=== PATIENT | female | born 1955 | race Caucasian/White ===

== ENCOUNTER → 2017-03-31 | Outpatient (CLI) | payer MEDICARE, OTHER ==
[~2017-03-31] MED LIST: AMLODIPINE BESYL5 MG PO; ASMANEX0.24 G1 IH; ASPIR 8181 MG PO; ASPIRIN EC81 M1 PO; ATORVASTATIN CA40 MG PO; AZITHROMYCIN 2250 MG PO; BACTRIM DS TAB1 EACH PO; BENZONATATE200 MG PO; BRILINTA90 MG PO; BUPROPION XL150 MG PO; CEFDINIR300 MG PO; CEFTIN500 MG PO; CELEXA40 MG PO; CO Q-10100 MG PO; COLACE100 MG PO; CYMBALTA60 MG PO; EFFIENT10 MG PO; ESTRACE2 MG PO; FLEXERIL PO; FLOVENT HFA 4444 MCG INH; GLYBURIDE 2.52.5 MG PO; HYTRIN 1 MG CAP1 MG PO; HYTRIN 5 M5 MG/1 CAP PO; HYZAAR 100-12.1 EACH PO; IRON325 PO; KOMBIGLYZE XR1 EACH; LEVEMIR SUBQ; LOSARTAN POTAS100 MG PO; LOSARTAN-HCTZ1 EAC3 PO; METFORMIN; METFORMIN HCL500 MG PO; MIRALAX17 GM PO; MOBIC15 MG PO; NATEGLINIDE; NEURONTIN 300300 M1 PO; NEURONTIN300 MG PO; NEURONTIN600 MG PO; NITROGLYCERIN0.4 MG SUBLING; NORVASC5 MG PO; NOVOLIN 70100 UNIT/1 SUBQ; NOVOLOG100 UNIT/1 SUBQ; OXYBUTYNIN 5 MG5 M1 PO; PROTONIX 20 MG20 M1 PO; PROTONIX40 M1 PO; PROTONIX40 M2 PO; Prandin PO; QUINU10 PD; RANEXA500 MG PO; Starlix PO; TOPROL XL25 MG PO; TRAMADOL 50 MG50 MG PO; TRAZODONE HCL50 MG PO; TRESIBA FL100 UNIT/1 SUBQ; TYLENOL325 MG PO; VALACYCLOVIR1000 MG PO; VALIUM5 MG PO; VENTOLIN HFA 1818 GM INH; VESICARE10 M1 PO; VICTOZA0.6 MG/0.1; VITAMIN B-12500 MCG PO; VITAMIN D2000 UNIT PO; WELLBUTRIN SR200 MG PO; XANAX 0.25 MG0.25 MG PO; ZITHROMAX250 MG PO; ZOCOR 20 MG TAB20 M1 PO; ZOCOR20 MG PO
== END ==
LOC: M.RAD 13:01
DX: J90 Pleural effusion, not elsewhere classified (principal); J40 Bronchitis, not specified as acute or chronic; J98.4 Other disorders of lung; Z98.890 Other specified postprocedural states

== ENCOUNTER → 2017-11-09 | Outpatient (CLI) | payer MEDICARE, OTHER | LOC: M.RAD 11:38 | DX: I70.0 Atherosclerosis of aorta (principal); M12.88 Other specific arthropathies, not elsewhere classified, other specified site; I70.8 Atherosclerosis of other arteries; R07.89 Other chest pain; I10 Essential (primary) hypertension; E11.9 Type 2 diabetes mellitus without complications; J45.909 Unspecified asthma, uncomplicated; E78.00 Pure hypercholesterolemia, unspecified; G47.33 Obstructive sleep apnea (adult) (pediatric) ==

== ENCOUNTER → 2017-12-15 | Outpatient (CLI) | payer MEDICARE, OTHER | LOC: M.ULTRA 07:31 | DX: Z12.31 Encounter for screening mammogram for malignant neoplasm of breast (principal); I73.9 Peripheral vascular disease, unspecified; I35.0 Nonrheumatic aortic (valve) stenosis; I10 Essential (primary) hypertension; E11.9 Type 2 diabetes mellitus without complications; M19.90 Unspecified osteoarthritis, unspecified site; K21.9 Gastro-esophageal reflux disease without esophagitis; F32.9 Major depressive disorder, single episode, unspecified; J45.909 Unspecified asthma, uncomplicated; E78.00 Pure hypercholesterolemia, unspecified; G47.33 Obstructive sleep apnea (adult) (pediatric) ==

== ENCOUNTER 2017-12-27 22:05 | Inpatient (IN) | payer MEDICARE, OTHER ==
[~2017-12-27] VITALS: Ht 162.6 cm; Wt 110.7 kg
[~2017-12-27 22:05] MED LIST changes: -AZITHROMYCIN 2250 MG PO; -CEFDINIR300 MG PO; -CO Q-10100 MG PO; -NEURONTIN600 MG PO; -RANEXA500 MG PO; -TRAZODONE HCL50 MG PO; -TRESIBA FL100 UNIT/1 SUBQ; -VALIUM5 MG PO
[2017-12-27 22:11] VITALS: BP 154/60
[2017-12-27 22:33] LABS: HEMATOCRIT 38.8 % (37.0-47.0); HEMOGLOBIN 12.6 gm/dL (12.0-15.0); MCH 31.2 pg (26.0-34.0); MCHC 32.4 g/dL (28.0-37.0); MCV 96.2 fL (80.0-100.0); NUCLEATED RBCS 0 /100WBC; PLATELET COUNT* 263 thou/uL (150-400); RBC 4.04 mil/uL (4.20-5.00); RDW-CV 13.1 % (10.5-14.5); WBC 17.9 thou/uL (4.0-11.0)
[2017-12-27] MEDS ORDERED: TRESIBA FL100 UNIT/1 SUBQ (22:38)
[2017-12-27 22:41] LABS: CALCIUM 9.9 mg/dL (8.5-10.1); CREATININE 2.2 mg/dL (0.6-1.3); POTASSIUM 3.9 mmol/L (3.5-5.1)
[2017-12-27 22:42] LABS: ALBUMIN 3.3 g/dL (3.4-5.0); TOTAL BILIRUBIN 0.4 mg/dL (<0.1-1.0); TOTAL PROTEIN 7.4 g/dL (6.4-8.2)
[2017-12-27 22:43] LABS: BE -7.1 mmol/L (-2 to +3); HCO3 16.5 mmol/L (22.0-26.0); PCO2 28.2 mmHg (35.0-45.0); PO2 71.6 mmHg (75.0-100.0); pH 7.384 (7.340-7.450)
[2017-12-28 00:15] LABS: ABSOLUTE LYMPHOCYTES 0.9 thou/uL (0.8-5.3); ABSOLUTE MONOCYTES 0.4 thou/uL (0.0-1.2); ABSOLUTE NEUTROPHILS 16.6 thou/uL (1.6-8.1); PLATELET ESTIMATE ADEQUATE
[2017-12-28 01:01] LABS: URINE BILIRUBIN NEGATIVE (Negative); URINE BLOOD NEGATIVE (Negative); URINE CLARITY CLEAR; URINE COLOR YELLOW; URINE GLUCOSE-RANDOM 3+ (Negative); URINE KETONES 1+ (Negative); URINE LEUKOCYTES-REFLEX NEGATIVE (Negative); URINE NITRITE-REFLEX NEGATIVE (Negative); URINE PROTEIN NEGATIVE (Negative); URINE SPECIFIC GRAVITY <= 1.005 (1.005-1.030); URINE UROBILINOGEN 0.2 E.U./dl (0.2-1.0)
[2017-12-28 01:45] VITALS: BP 137/81
[2017-12-28 02:00] VITALS: BP 139/79
[2017-12-28] MEDS ORDERED: ASPIR 8181 MG PO (02:08)
[2017-12-28] MEDS ORDERED: CO Q-10100 MG PO (02:09)
[2017-12-28] MEDS ORDERED: VALIUM5 MG PO (02:10)
[2017-12-28] MEDS ORDERED: NEURONTIN600 MG PO (02:11)
[2017-12-28] MEDS ORDERED: RANEXA500 MG PO (03:06)
[2017-12-28] MEDS ORDERED: TRAZODONE HCL50 MG PO (03:07)
[2017-12-28] MEDS ORDERED: VALACYCLOVIR1000 MG PO (03:08)
[2017-12-28] MEDS ORDERED: VITAMIN B-12500 MCG PO (03:10)
[2017-12-28 03:31] LABS: ABSOLUTE LYMPHOCYTES 1.6 thou/uL (0.8-5.3); ANION GAP 17 mmol/L (7-16); BASOPHILS 0.1 %; BUN 35 mg/dL (7-18); CALCIUM 9.2 mg/dL (8.5-10.1); CHLORIDE 96 mmol/L (98-107); CO2 19 mmol/L (21-32); CREATININE 2.1 mg/dL (0.6-1.3); HEMATOCRIT 38.8 % (37.0-47.0); HEMOGLOBIN 12.5 gm/dL (12.0-15.0); LYMPHOCYTES 8.5 %; MCH 30.6 pg (26.0-34.0); MCHC 32.3 g/dL (28.0-37.0); MONOCYTES 5.6 %; MPV 10.2 fl. (7.2-11.1); NUCLEATED RBCS 0 /100WBC; PLATELET COUNT* 258 thou/uL (150-400); POLYS 85.8 %; POTASSIUM 3.3 mmol/L (3.5-5.1); RBC 4.08 mil/uL (4.20-5.00); RDW-CV 12.7 % (10.5-14.5); SODIUM 132 mmol/L (136-145); WBC 18.6 thou/uL (4.0-11.0)
[2017-12-28 03:33] LABS: GLUCOSE 511 mg/dL (70-99)
[2017-12-28 03:35] LABS: ALBUMIN 3.3 g/dL (3.4-5.0); ALKALINE PHOSPHATASE 132 U/L (46-116); MAGNESIUM 1.7 mg/dL (1.8-2.4); SGOT 12 U/L (15-37); SGPT 22 U/L (30-65); TOTAL BILIRUBIN 0.3 mg/dL (<0.1-1.0); TOTAL PROTEIN 6.9 g/dL (6.4-8.2); TROPONIN-I LEVEL <0.06 ng/mL (<0.06)
[2017-12-28 07:30] VITALS: BP 125/72
[2017-12-28 07:39] LABS: CALCIUM 9.6 mg/dL (8.5-10.1); CREATININE 1.6 mg/dL (0.6-1.3); MAGNESIUM 1.8 mg/dL (1.8-2.4)
[2017-12-28 12:00] VITALS: BP 118/79
[2017-12-28 12:01] LABS: CALCIUM 8.5 mg/dL (8.5-10.1); CREATININE 1.3 mg/dL (0.6-1.3); MAGNESIUM 1.7 mg/dL (1.8-2.4); POTASSIUM 3.6 mmol/L (3.5-5.1)
[2017-12-28 12:41] LABS: URINE BILIRUBIN NEGATIVE (Negative); URINE BLOOD NEGATIVE (Negative); URINE CLARITY CLEAR; URINE COLOR YELLOW; URINE GLUCOSE-RANDOM NEGATIVE (Negative); URINE KETONES NEGATIVE (Negative); URINE LEUKOCYTES-REFLEX NEGATIVE (Negative); URINE NITRITE-REFLEX NEGATIVE (Negative); URINE PROTEIN NEGATIVE (Negative); URINE SPECIFIC GRAVITY <= 1.005 (1.005-1.030); URINE UROBILINOGEN 0.2 E.U./dl (0.2-1.0)
[2017-12-28 15:37] LABS: CALCIUM 8.7 mg/dL (8.5-10.1); CREATININE 1.2 mg/dL (0.6-1.3); MAGNESIUM 1.7 mg/dL (1.8-2.4); POTASSIUM 3.7 mmol/L (3.5-5.1)
[2017-12-28 16:00] VITALS: BP 133/77
--- NOTE | 2017-12-28 17:26 | EKG ---
[place] [address] ELECTROCARDIOGRAM REPORT Name: GWENDOLYN PAULINO Room: [address] ADM IN M.R.#: [id number] Admission: 12/28/17 Attend Phys: Eriberto Armijo MD Discharge: Date of : 55 Report #: [id number] THIS REPORT FOR: //name// [facility] ED Test Date: 2017-12-28 Test Time: 01:05:57 Pat Name: GWENDOLYN PAULINO Department: Room: [address] Gender: F Pathology Manager: : 1955 Requested By: Gaby Singh Order Number: [id number] Reading MD: Parviz Gamble Measurements Intervals [place] Rate: 96 P: 55 MS: 155 QRS: 42 QRSD: 95 T: -75 QT: 387 QTc: 490 Interpretive Statements Sinus rhythm Probable left atrial enlargement Borderline T abnormalities, inferior leads Borderline prolonged QT interval Compared to ECG 02/16/2017 13:15:03 No significant changes Electronically Signed On 12-28-2017 17:25:56 CDT by Parviz Gamble [email or web address] <ELECTRONICALLY SIGNED> By: Parviz Gamble MD, [facility] 12/28/17 1725 0105 Parviz Gamble MD, [facility] /EPI
--- NOTE | 2017-12-28 17:28 | EKG ---
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: : 1955 Requested By: Gaby Singh Order Number: [id number] Reading MD: Parviz Gamble Measurements Intervals [place] Rate: 86 P: 44 [place]: 143 QRS: 19 QRSD: 93 T: -48 QT: 395 QTc: 473 Interpretive Statements Sinus rhythm Probable left atrial enlargement Nonspecific T abnormalities, diffuse leads Compared to ECG 02/16/2017 13:15:03 Prolonged QT interval no longer present T-wave abnormality still present Electronically Signed On 12-28-2017 17:27:45 CDT by Parviz Gamble [email or web address] <ELECTRONICALLY SIGNED> By: Parviz Gamble MD, FAC 12/28/17 1727 0828 0828 Parviz Gamble MD, [facility] /EPI
[2017-12-28 19:49] LABS: CALCIUM 8.6 mg/dL (8.5-10.1); CREATININE 1.1 mg/dL (0.6-1.3); MAGNESIUM 1.6 mg/dL (1.8-2.4); POTASSIUM 3.4 mmol/L (3.5-5.1)
[2017-12-28 20:00] VITALS: BP 166/93
[2017-12-29] VITALS: BP 138/79
[2017-12-29 04:28] VITALS: BP 164/84
[2017-12-29 07:36] LABS: ABSOLUTE BASOPHILS 0.1 thou/uL (0.0-0.2); ABSOLUTE EOSINOPHILS 0.2 thou/uL (0.0-0.7); ABSOLUTE LYMPHOCYTES 1.9 thou/uL (0.8-5.3); ABSOLUTE MONOCYTES 1.2 thou/uL (0.0-1.2); ABSOLUTE NEUTROPHILS 11.8 thou/uL (1.6-8.1); BASOPHILS 0.8 %; EOSINOPHILS 1.1 %; HEMATOCRIT 37.7 % (37.0-47.0); HEMOGLOBIN 12.7 gm/dL (12.0-15.0); LYMPHOCYTES 12.5 %; MCH 31.1 pg (26.0-34.0); MCHC 33.6 g/dL (28.0-37.0); MCV 92.8 fL (80.0-100.0); MPV 9.3 fl. (7.2-11.1); NUCLEATED RBCS 0 /100WBC; PLATELET COUNT* 262 thou/uL (150-400); POLYS 77.6 %; RBC 4.07 mil/uL (4.20-5.00); RDW-CV 12.7 % (10.5-14.5); WBC 15.2 thou/uL (4.0-11.0)
[2017-12-29 07:51] LABS: ALBUMIN 2.8 g/dL (3.4-5.0); CALCIUM 8.9 mg/dL (8.5-10.1); CREATININE 1.1 mg/dL (0.6-1.3); MAGNESIUM 2.1 mg/dL (1.8-2.4); PHOSPHORUS* 2.1 mg/dL (2.5-4.9); TOTAL BILIRUBIN 0.6 mg/dL (<0.1-1.0); TOTAL PROTEIN 6.7 g/dL (6.4-8.2)
[2017-12-29 07:53] LABS: POTASSIUM 4.4 mmol/L (3.5-5.1)
[2017-12-29 08:00] VITALS: BP 140/80
[2017-12-29 12:13] VITALS: BP 121/71
[2017-12-29 13:03] LABS: URINE BILIRUBIN NEGATIVE (Negative); URINE BLOOD NEGATIVE (Negative); URINE CLARITY CLEAR; URINE COLOR YELLOW; URINE GLUCOSE-RANDOM NEGATIVE (Negative); URINE KETONES NEGATIVE (Negative); URINE LEUKOCYTES-REFLEX NEGATIVE (Negative); URINE NITRITE-REFLEX NEGATIVE (Negative); URINE PROTEIN NEGATIVE (Negative); URINE SPECIFIC GRAVITY <= 1.005 (1.005-1.030); URINE UROBILINOGEN 0.2 E.U./dl (0.2-1.0)
[2017-12-29 16:00] VITALS: BP 127/64
[2017-12-29 20:00] VITALS: BP 134/68
[2017-12-30] VITALS: BP 137/64
[2017-12-30 04:00] VITALS: BP 153/71
[2017-12-30 04:57] LABS: HEMATOCRIT 37.5 % (37.0-47.0); HEMOGLOBIN 12.6 gm/dL (12.0-15.0); MCH 31.2 pg (26.0-34.0); MCHC 33.5 g/dL (28.0-37.0); MCV 93.1 fL (80.0-100.0); MPV 9.6 fl. (7.2-11.1); RBC 4.02 mil/uL (4.20-5.00); RDW-CV 12.9 % (10.5-14.5); WBC 11.4 thou/uL (4.0-11.0)
[2017-12-30 06:08] LABS: ALBUMIN 2.7 g/dL (3.4-5.0); CALCIUM 9.3 mg/dL (8.5-10.1); CREATININE 1.3 mg/dL (0.6-1.3); POTASSIUM 3.7 mmol/L (3.5-5.1); TOTAL BILIRUBIN 0.5 mg/dL (<0.1-1.0); TOTAL PROTEIN 6.7 g/dL (6.4-8.2)
[2017-12-30 07:57] VITALS: BP 153/88
[2017-12-30 12:03] VITALS: BP 154/77
[2017-12-30] MEDS ORDERED: AZITHROMYCIN 2250 MG PO (13:28)
[2017-12-30] MEDS ORDERED: CEFDINIR300 MG PO (13:28)
[2017-12-30 13:45] VITALS: BP 154/77
--- NOTE | 2018-01-01 08:35 | CON ---
[address] [address] CONSULTATION Name: GWENDOLYN PAULINO Room: [address] IN .R.#: [id number] Admission: 12/28/17 Attend Phys: Eriberto Armijo MD Discharge: 12/30/17 Date of : 55 Report #: [id number] THIS REPORT FOR: //name// CC: Eriberto Ornelastings DATE OF SERVICE: 12/28/2017 NEPHROLOGY CONSULTATION CONSULTING PHYSICIAN: Dr. Luna. REASON FOR NEPHROLOGY CONSULTATION: Acute kidney injury. CHIEF COMPLAINT: The patient was having high blood glucose. HISTORY OF PRESENT ILLNESS: This is a 62-year-old female, who will be having chronic kidney disease, stage 2-3 with baseline creatinine of 1-1.4, has a history of diabetes and hypertension, who had to take steroids for the past couple of days because of increasing upper respiratory symptoms with congestion-like symptoms, and she noticed that her blood glucose was running high. She had a blood glucose in 800s when she came into the ER yesterday, and she was started on insulin drip and IV fluids for DKA protocol, but she actually was not in DKA. Her creatinine was 2.2 when she came in and did slowly come down to 1.6 with IV fluids. She does not take any NSAIDs at home and reports no history of urinary problems, and does not have any history of kidney stones. She does take losartan at home. Currently, she is still having some wheezing and difficulty breathing. She also has a history of asthma. She also has some cough, not really producing much sputum. ALLERGIES: LISINOPRIL, HYDROCODONE, MELOXICAM AND BAND-AIDS. REVIEW OF SYSTEMS: Which is as mentioned in history of present illness, but otherwise negative. PAST MEDICAL AND SURGICAL HISTORY: Which includes partial hysterectomy, bilateral foot surgery, hypertension, insulin-dependent diabetes mellitus, dislocated disk and back surgery for that, arthritis, asthma, epilepsy, last seizure 4-5 years ago, sleep apnea, fatty liver, dyslipidemia, left lung cancer, removed half of the lung and received chemoradiation for that in 2013, GERD, oral surgery, multiple teeth extractions, upper denture, depression, cardiac stent placed in October. HOME MEDICATIONS: Which include losartan, Brilinta, albuterol, amlodipine, cholecalciferol, cyanocobalamin, gabapentin, terazosin, nitroglycerin, fluticasone, glyburide, pantoprazole, aspirin, ubidecarenone, lorazepam, [place] [address] CONSULTATION Name: GWENDOLYN PAULINO Erasmo Room: [address]#: [id number] Admission: 12/28/17 Attend Phys: Eriberto Armijo MD Discharge: 12/30/17 Date of : 55 Report #: [id number] gabapentin, acyclovir, cyanocobalamin, Tresiba and duloxetine. FAMILY HISTORY: No history of any kidney disease in the family that the patient knows. SOCIAL HISTORY: She does not smoke or use alcohol, does not use recreational drugs. Lives at home with her . PHYSICAL EXAMINATION: VITAL SIGNS: Blood pressure is 139/79, temperature 36.6, respiratory rate is 18, pulse rate is 95, pulse ox is 95% on room air. GENERAL: She is awake, alert, oriented. She is very pleasant. HEAD, EYES, EARS, NOSE, THROAT: Mucous members are moist. NECK: There is no JVD. CHEST: Bilateral diminished breath sounds and there is some wheezing present bilaterally. CARDIOVASCULAR: S1, S2 normal. No murmurs present. ABDOMEN: Soft, nondistended, obese, nontender. EXTREMITIES: Lower extremities, there is no lower extremity edema. Symmetrical lower extremities. NEUROLOGIC FUNCTION: Gross neurologic function is intact. PSYCHIATRIC: Mood and affect seems to be normal. LABORATORY DATA: WBC is 18.2, hemoglobin is 12.5, platelet count is 258. Sodium is 135, potassium is 3.0, chloride was 101, BUN was 32, creatinine was 1.6, was 2.2 when she came in. Other labs are reviewed. UA had no protein or blood on dipstick. IMAGING: Chest x-ray was reviewed. ASSESSMENT: 1. Acute kidney injury on likely chronic kidney disease stage 3, likely the patient has diabetic and hypertensive nephropathy and acute kidney injury was because of dehydration and also because of ARB use in this situation. Creatinine is currently getting better, was 2.2 when she came in and it is down to 1.6. Baseline creatinine is 1-1.4. No need for renal ultrasound as of yet. Urine is pretty bland with no protein or blood in it. 2. Hypokalemia. This is because of polyuria because of increased blood glucose and potassium is being replaced as per protocol by primary team. 3. Hyperglycemia, likely steroid induced. Primary team is following that. I think she qualifies for sepsis at this moment and she needs sepsis fluid bolus protocol. 4. Hypertension. Her blood pressure is currently controlled. Suggest avoid ARB for now until her creatinine recovers. 5. Upper respiratory infection, exacerbation of asthma, primary [place] [address] CONSULTATION Name: GWENDOLYN PAULINO Room: [address]#: [id number] Admission: 12/28/17 Attend Phys: Eriberto Armijo MD Discharge: 12/30/17 Date of : 55 Report #: [id number] 6. Diabetes, type 2. PLAN: 1. I would cut down her D5 normal saline to 100 mL an hour. 2. The potassium is being replaced as per protocol. 3. Creatinine continues to get better. Thank you for this consultation. I discussed the plan with the patient as well as the patient's and the patient's nurse. I's and O's also need to be maintained. I will continue to follow with you. <ELECTRONICALLY SIGNED> By: Ana Lilia Roman MD 01/01/18 0835 0842 2024Akadeem Roman MD /nt
== END 2017-12-30 14:26 | disposition home or self-care (01) | DRG 871 ==
LOC: M.ERS 22:05 → M.2W 12-28 00:13 → M.TBA-ER 12-28 00:13 → M.2W 12-28 00:54
PROVIDERS: Internal Medicine; Personal Emergency Response Attendant; ADMIT Internal Medicine
DX: A41.9 Sepsis, unspecified organism (principal); E11.10 Type 2 diabetes mellitus with ketoacidosis without coma; N17.9 Acute kidney failure, unspecified; J45.901 Unspecified asthma with (acute) exacerbation; M19.90 Unspecified osteoarthritis, unspecified site; J45.909 Unspecified asthma, uncomplicated; E78.00 Pure hypercholesterolemia, unspecified; K21.9 Gastro-esophageal reflux disease without esophagitis; F32.9 Major depressive disorder, single episode, unspecified; J06.9 Acute upper respiratory infection, unspecified; G40.909 Epilepsy, unspecified, not intractable, without status epilepticus; E78.5 Hyperlipidemia, unspecified; K08.409 Partial loss of teeth, unspecified cause, unspecified class; I12.9 Hypertensive chronic kidney disease with stage 1 through stage 4 chronic kidney disease, or unspecified chronic kidney disease; N18.3 Chronic kidney disease, stage 3 (moderate); E87.6 Hypokalemia; Z79.4 Long term (current) use of insulin; Z90.711 Acquired absence of uterus with remaining cervical stump; Z85.118 Personal history of other malignant neoplasm of bronchus and lung; Z88.8 Allergy status to other drugs, medicaments and biological substances; Z95.5 Presence of coronary angioplasty implant and graft; Z92.21 Personal history of antineoplastic chemotherapy; Z92.3 Personal history of irradiation; Z88.6 Allergy status to analgesic agent; Z82.49 Family history of ischemic heart disease and other diseases of the circulatory system; Z87.891 Personal history of nicotine dependence; Z79.899 Other long term (current) drug therapy; T38.0X5A Adverse effect of glucocorticoids and synthetic analogues, initial encounter

== ENCOUNTER 2018-04-09 17:33 | Inpatient (IN) | payer MEDICARE, OTHER ==
[~2018-04-09] VITALS: Ht 162.6 cm; Wt 109.8 kg
[~2018-04-09 17:33] MED LIST changes: +AZITHROMYCIN 2250 MG PO; +CEFDINIR300 MG PO; +CO Q-10100 MG PO; +NEURONTIN600 MG PO; +RANEXA500 MG PO; +TRAZODONE HCL50 MG PO; +TRESIBA FL100 UNIT/1 SUBQ; +VALIUM5 MG PO
[2018-04-09 17:39] VITALS: BP 186/77
[2018-04-09] MEDS ORDERED: NORCO 7.5-3251 EACH PO (17:47)
[2018-04-09 18:04] LABS: URINE BILIRUBIN NEGATIVE (Negative); URINE BLOOD NEGATIVE (Negative); URINE CLARITY CLEAR; URINE COLOR STRAW; URINE GLUCOSE-RANDOM 2+ (Negative); URINE KETONES NEGATIVE (Negative); URINE LEUKOCYTES-REFLEX NEGATIVE (Negative); URINE NITRITE-REFLEX NEGATIVE (Negative); URINE PROTEIN NEGATIVE (Negative); URINE SPECIFIC GRAVITY <= 1.005 (1.005-1.030); URINE UROBILINOGEN 0.2 E.U./dl (0.2-1.0)
[2018-04-09 18:05] LABS: ABSOLUTE EOSINOPHILS 0.1 thou/uL (0.0-0.7); ABSOLUTE LYMPHOCYTES 2.4 thou/uL (0.8-5.3); ABSOLUTE MONOCYTES 0.8 thou/uL (0.0-1.2); ABSOLUTE NEUTROPHILS 7.9 thou/uL (1.6-8.1); BASOPHILS 0.2 %; EOSINOPHILS 1.1 %; LYMPHOCYTES 21.1 %; MCH 30.7 pg (26.0-34.0); MCHC 32.6 g/dL (28.0-37.0); MCV 94.2 fL (80.0-100.0); MONOCYTES 6.7 %; MPV 9.7 fl. (7.2-11.1); NUCLEATED RBCS 0 /100WBC; PLATELET COUNT* 270 thou/uL (150-400); POLYS 70.9 %; RBC 4.88 mil/uL (4.20-5.00); RDW-CV 13.6 % (10.5-14.5); WBC 11.2 thou/uL (4.0-11.0)
[2018-04-09 18:07] LABS: CALCIUM 9.8 mg/dL (8.5-10.1); CREATININE 1.5 mg/dL (0.6-1.3); POTASSIUM 4.5 mmol/L (3.5-5.1)
[2018-04-09 18:11] LABS: ALBUMIN 3.6 g/dL (3.4-5.0); TOTAL BILIRUBIN 0.4 mg/dL (<0.1-1.0); TOTAL PROTEIN 7.6 g/dL (6.4-8.2)
[2018-04-09 18:12] LABS: BE -4.2 mmol/L (-2 to +3); HCO3 19.5 mmol/L (22.0-26.0); PCO2 32.3 mmHg (35.0-45.0); PO2 73.7 mmHg (75.0-100.0); pH 7.399 (7.340-7.450)
[2018-04-09 20:20] VITALS: BP 150/70
[2018-04-09 20:30] VITALS: BP 146/70
--- NOTE | 2018-04-10 06:12 | NUR ---
PATIENT ARRIVED ON FLOOR FROM ER ABOUT 2029. PATIENT ADMISSION HISTORY AND ASSESSMENT WAS COMPLETED CHARTED. BLOOD SUGAR WAS 252 RIGHT BEFORE SHE CAME UP FROM ER INSULIN WAS GIVEN PER SLIDING SCALE. PATIENT WAS GIVEN PAIN MEDICINE ONCE FOR CHRONIC PAIN. IV FLUIDS ARE INFUSING AT 100 ML/HR. WILL CONTINUE TO MONITOR.
[2018-04-10 08:00] VITALS: BP 152/75
--- NOTE | 2018-04-10 15:32 | EKG ---
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: [place] : 1955 Requested By: Gaby Singh Order Number: [id number] MD: Parviz Gamble Measurements Intervals [place] Rate: 91 P: 52 [place]: 140 QRS: -1 QRSD: 56 T: -13 QT: 483 QTc: 595 Interpretive Statements Sinus rhythm Probable left atrial enlargement Borderline repolarization abnormality Prolonged QT interval Compared to ECG 12/28/2017 08:28:46 Prolonged QT interval now present T-wave abnormality no longer present Electronically Signed On 04-10-2018 15:32:25 OPERATIONS LABEL CLERK by Parviz Gamble [email or web address] <ELECTRONICALLY SIGNED> By: Parviz Gamble MD, [facility] 04/10/18 1532 1830 1830 Parviz Gamble MD, [facility] /EPI
--- NOTE | 2018-04-10 15:44 | NUR ---
SW met with pt to complete initial assessment, introduce self, and SW role. Pt alert, oriented. Pt lives at home with family. Pt says her is very supportive and pt does not anticipate any dc needs. SW to continue to follow to assist with safe dc planning.
--- NOTE | 2018-04-10 16:39 | NUR ---
SHIFT NOTE - HOME MEDS ORDERED FOR THIS SHIFT. PT UP TO BR AD DANIKA. WILL CONTINUE TO MONITOR.
[2018-04-10 16:51] VITALS: BP 159/85
[2018-04-10 23:09] LABS: GLYCOHEMOGLOBIN (HGB A1C) 11.9 % (4.8-5.6)
[2018-04-11 00:24] VITALS: BP 151/74
[2018-04-11 03:54] LABS: ABSOLUTE BASOPHILS 0.1 thou/uL (0.0-0.2); ABSOLUTE EOSINOPHILS 0.1 thou/uL (0.0-0.7); ABSOLUTE LYMPHOCYTES 1.6 thou/uL (0.8-5.3); ABSOLUTE MONOCYTES 0.6 thou/uL (0.0-1.2); ABSOLUTE NEUTROPHILS 7.4 thou/uL (1.6-8.1); BASOPHILS 0.5 %; EOSINOPHILS 0.9 %; HEMATOCRIT 39.3 % (37.0-47.0); LYMPHOCYTES 16.6 %; MCH 30.5 pg (26.0-34.0); MCV 92.5 fL (80.0-100.0); MPV 9.3 fl. (7.2-11.1); NUCLEATED RBCS 0 /100WBC; PLATELET COUNT* 222 thou/uL (150-400); RBC 4.24 mil/uL (4.20-5.00); RDW-CV 13.7 % (10.5-14.5); WBC 9.7 thou/uL (4.0-11.0)
[2018-04-11 04:11] LABS: CALCIUM 8.8 mg/dL (8.5-10.1); CREATININE 1.4 mg/dL (0.6-1.3); POTASSIUM 4.3 mmol/L (3.5-5.1)
--- NOTE | 2018-04-11 06:21 | NUR ---
PATIENT SLEPT WELL DURING THIS SHIFT. PT UP TO BATHROOM WITH STEADY GAIT. PT WITH FLUIDS INFUSING IN LT AC PER DR ORDER. PT DENIES PAIN. PT WITH BLOOD SUGAR AT 2100 OF 165; INSULIN GIVEN CHARTED. FREQUENTLY USED ITEMS AND CALL LIGHT WITHINA REACH. SIDERAILS UPX2. WILL CONTINUE TO MONITOR.
[2018-04-11 07:30] VITALS: BP 156/82
[2018-04-11] MEDS ORDERED: HUMALOG100 UNIT/1 SUBQ (10:25)
[2018-04-11 10:26] VITALS: BP 156/82
--- NOTE | 2018-04-11 11:02 | NUR ---
PATIENT GIVEN INSULIN WITH BREAKFAST THIS AM, INSTRUCTED ON SLIDING SCALE INSULIN. IV DC'D. PATIENT VERBALIZES UNDERSTANDING OF PAPERWORK AND SCRIPT. PATIENT TAKEN OUT VIA WHEELCHAIR WITH ALL BELONGINGS WITH STAFF.
== END 2018-04-11 11:06 | disposition home or self-care (01) | DRG 682 ==
LOC: M.ERS 17:33 → M.TBA-ER 18:43 → M.3W 18:43 → M.TBA-ER 18:52 → M.3W 21:06
PROVIDERS: Internal Medicine; Personal Emergency Response Attendant; ADMIT Internal Medicine
DX: N17.9 Acute kidney failure, unspecified (principal); E11.00 Type 2 diabetes mellitus with hyperosmolarity without nonketotic hyperglycemic-hyperosmolar coma (NKHHC); R65.11 Systemic inflammatory response syndrome (SIRS) of non-infectious origin with acute organ dysfunction; E87.1 Hypo-osmolality and hyponatremia; E11.65 Type 2 diabetes mellitus with hyperglycemia; I10 Essential (primary) hypertension; M19.90 Unspecified osteoarthritis, unspecified site; E78.00 Pure hypercholesterolemia, unspecified; K21.9 Gastro-esophageal reflux disease without esophagitis; F32.9 Major depressive disorder, single episode, unspecified; J45.909 Unspecified asthma, uncomplicated; E86.0 Dehydration; Z88.8 Allergy status to other drugs, medicaments and biological substances; Z88.5 Allergy status to narcotic agent; Z90.710 Acquired absence of both cervix and uterus; Z95.5 Presence of coronary angioplasty implant and graft; Z79.899 Other long term (current) drug therapy; Z79.4 Long term (current) use of insulin; Z79.82 Long term (current) use of aspirin

== ENCOUNTER → 2018-11-09 | Outpatient (CLI) | payer MEDICARE, OTHER ==
[~2018-11-09] MED LIST changes: +HUMALOG100 UNIT/1 SUBQ; +NORCO 7.5-3251 EACH PO
== END ==
LOC: M.ULTRA 13:15
DX: E01.0 Iodine-deficiency related diffuse (endemic) goiter (principal); Z88.8 Allergy status to other drugs, medicaments and biological substances

== ENCOUNTER 2019-05-19 19:47 | Emergency (ER) | payer MEDICARE, OTHER ==
[~2019-05-19] VITALS: Ht 162.6 cm; Wt 108.9 kg
[2019-05-19 20:12] LABS: URINE BILIRUBIN NEGATIVE (Negative); URINE BLOOD NEGATIVE (Negative); URINE CLARITY CLEAR; URINE COLOR YELLOW; URINE GLUCOSE-RANDOM NEGATIVE (Negative); URINE KETONES NEGATIVE (Negative); URINE LEUKOCYTES-REFLEX NEGATIVE (Negative); URINE NITRITE-REFLEX NEGATIVE (Negative); URINE PROTEIN NEGATIVE (Negative); URINE SPECIFIC GRAVITY 1.025 (1.005-1.030); URINE UROBILINOGEN 0.2 E.U./dl (0.2-1.0)
[2019-05-19 20:31] LABS: ABSOLUTE BASOPHILS 0.1 thou/uL (0.0-0.2); ABSOLUTE EOSINOPHILS 0.1 thou/uL (0.0-0.7); ABSOLUTE LYMPHOCYTES 1.4 thou/uL (0.8-5.3); ABSOLUTE MONOCYTES 1.2 thou/uL (0.0-1.2); ABSOLUTE NEUTROPHILS 14.6 thou/uL (1.6-8.1); BASOPHILS 0.5 %; EOSINOPHILS 0.3 %; HEMATOCRIT 44.2 % (37.0-47.0); HEMOGLOBIN 15.1 gm/dL (12.0-15.0); LYMPHOCYTES 8.3 %; MCH 31.4 pg (26.0-34.0); MCHC 34.1 g/dL (28.0-37.0); MCV 92.1 fL (80.0-100.0); MONOCYTES 6.8 %; MPV 9.1 fl. (7.2-11.1); NUCLEATED RBCS 0 /100WBC; PLATELET COUNT* 227 thou/uL (150-400); POLYS 84.1 %; RDW-CV 13.8 % (10.5-14.5); WBC 17.3 thou/uL (4.0-11.0)
[2019-05-19 20:34] LABS: CALCIUM 9.6 mg/dL (8.5-10.1); CREATININE 1.2 mg/dL (0.6-1.3)
[2019-05-19 20:45] LABS: ALBUMIN 3.7 g/dL (3.4-5.0); TOTAL BILIRUBIN 0.4 mg/dL (<0.1-1.0); TOTAL PROTEIN 7.7 g/dL (6.4-8.2)
[2019-05-19 20:47] LABS: INFLUENZA A ANTIGEN Negative (Negative); INFLUENZA B ANTIGEN Negative (Negative)
[2019-05-19] MEDS ORDERED: PROAIR HFA8.5 GM INH (22:32)
[2019-05-19] MEDS ORDERED: ATIVAN0.5 M1 PO (22:32)
[2019-05-19] MEDS ORDERED: AMOXICILLIN875 MG PO (22:34)
[2019-05-19] MEDS ORDERED: TYLENOL WITH CO1 TA1 PO (22:34)
[2019-05-19 22:46] VITALS: BP 167/98
--- NOTE | 2019-05-20 12:21 | EKG ---
[place] [address] ELECTROCARDIOGRAM REPORT Name: GWENDOLYN PAULINO Room: [facility]#: [id number] Admission: 05/19/19 Attend Phys: Discharge: 05/19/19 Date of : 55 Date of Service: 05/19/192004 Report #: [id number] THIS REPORT FOR: //name// [facility] ED Test Date: 2019-05-19 Test Time: 20:05:36 Pat Name: GWENDOLYN PAULINO Department: Room: Gender: Project Coordinator: [place] : 1955 Requested By: Janina Tubbs Order Number: [id number] MD: Kenton Garcia Measurements Intervals [place] Rate: 103 P: 61 [place]: 135 QRS: 22 QRSD: 109 T: 29 QT: 357 QTc: 468 Interpretive Statements Sinus tachycardia Probable left atrial enlargement septal infarct, old Baseline wander in lead(s) V4 Compared to ECG 04/09/2018 18:30:34 Myocardial infarct finding now present Sinus rhythm no longer present Prolonged QT interval no longer present Electronically Signed On 05-20-2019 12:20:46 PLACEMENT SECRETARY by Kenton Garcia [email or web address] <ELECTRONICALLY SIGNED> By: Kenton Garcia MD, FACC 05/20/19 1220 04 04 Kenton Garcia MD, FAC /EPI
== END 2019-05-19 22:46 | disposition home or self-care (01) ==
LOC: M.ERS 19:47
PROVIDERS: Emergency Medicine
DX: J02.0 Streptococcal pharyngitis (principal); R19.7 Diarrhea, unspecified; I10 Essential (primary) hypertension; E78.00 Pure hypercholesterolemia, unspecified; E11.9 Type 2 diabetes mellitus without complications; J45.909 Unspecified asthma, uncomplicated; M19.90 Unspecified osteoarthritis, unspecified site; G47.30 Sleep apnea, unspecified; K21.9 Gastro-esophageal reflux disease without esophagitis; F32.9 Major depressive disorder, single episode, unspecified; Z90.711 Acquired absence of uterus with remaining cervical stump; Z95.2 Presence of prosthetic heart valve; Z79.4 Long term (current) use of insulin; Z88.5 Allergy status to narcotic agent; Z88.8 Allergy status to other drugs, medicaments and biological substances

== ENCOUNTER → 2020-01-24 | Outpatient (CLI) | payer MEDICARE, OTHER ==
[~2020-01-24] MED LIST changes: +AMOXICILLIN875 MG PO; +ATIVAN0.5 M1 PO; +PROAIR HFA8.5 GM INH; +TYLENOL WITH CO1 TA1 PO
== END ==
LOC: M.RAD 12:43
PROVIDERS: ATTEND Family Medicine
DX: Z12.31 Encounter for screening mammogram for malignant neoplasm of breast (principal)

== ENCOUNTER 2020-01-28 10:06 | Inpatient (IN) | payer MEDICARE, OTHER ==
[~2020-01-28] VITALS: Ht 162.6 cm; Wt 98.0 kg
[2020-01-28 10:22] VITALS: BP 131/68
[2020-01-28 10:33] LABS: URINE BILIRUBIN NEGATIVE (Negative); URINE BLOOD NEGATIVE (Negative); URINE CLARITY CLEAR; URINE COLOR YELLOW; URINE GLUCOSE-RANDOM NEGATIVE (Negative); URINE KETONES NEGATIVE (Negative); URINE LEUKOCYTES-REFLEX NEGATIVE (Negative); URINE NITRITE-REFLEX NEGATIVE (Negative); URINE PROTEIN TRACE (Negative); URINE UROBILINOGEN 0.2 E.U./dl (0.2-1.0)
[2020-01-28 10:50] LABS: INFLUENZA A ANTIGEN Negative (Negative); INFLUENZA B ANTIGEN Negative (Negative)
[2020-01-28 11:00] LABS: ABSOLUTE BASOPHILS 0.1 thou/uL (0.0-0.2); ABSOLUTE LYMPHOCYTES 1.3 thou/uL (0.8-5.3); ABSOLUTE NEUTROPHILS 4.3 thou/uL (1.6-8.1); BASOPHILS 0.9 %; EOSINOPHILS 0.1 %; HEMATOCRIT 41.4 % (37.0-47.0); LYMPHOCYTES 19.1 %; MCH 30.8 pg (26.0-34.0); MCHC 33.9 g/dL (28.0-37.0); MCV 90.9 fL (80.0-100.0); MONOCYTES 14.7 %; NUCLEATED RBCS 0 /100WBC; PLATELET COUNT* 164 thou/uL (150-400); POLYS 65.2 %; RBC 4.55 mil/uL (4.20-5.00); RDW-CV 13.4 % (10.5-14.5); WBC 6.6 thou/uL (4.0-11.0)
[2020-01-28 11:04] LABS: CALCIUM 8.2 mg/dL (8.5-10.1); CREATININE 1.5 mg/dL (0.6-1.3); POTASSIUM 3.4 mmol/L (3.5-5.1)
[2020-01-28 11:05] LABS: APTT 27.6 Seconds (25.0-31.3)
[2020-01-28 11:15] LABS: ALBUMIN 3.2 g/dL (3.4-5.0); TOTAL BILIRUBIN 0.4 mg/dL (<0.1-1.0); TOTAL PROTEIN 7.6 g/dL (6.4-8.2)
--- NOTE | 2020-01-28 13:31 | NUR ---
PT NOW IN INPATIENT HOSPITAL BED, STATES RELIEF FROM BACK PAIN.
[2020-01-28 14:12] VITALS: BP 150/87
[2020-01-28 15:30] VITALS: BP 143/62
--- NOTE | 2020-01-28 15:33 | EKG ---
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: [place] : 1955 Requested By: Monique Powell Order Number: [id number] MD: Kenton Garcia Measurements Intervals [place] Rate: 93 P: 50 AK: 149 QRS: 14 QRSD: 103 T: -62 QT: 378 QTc: 471 Interpretive Statements Sinus rhythm Probable left atrial enlargement Borderline T abnormalities, inferior leads Compared to ECG 05/19/2019 20:05:36 Sinus tachycardia no longer present Myocardial infarct finding no longer present Electronically Signed On 01-28-2020 15:33:25 SEISMOGRAPH CHIEF by Kenton Garcia [email or web address] <ELECTRONICALLY SIGNED> By: Kenton Garcia MD, FACC 01/28/20 1533 1105 1105 Kenton Garcia MD, FACC /EPI
--- NOTE | 2020-01-28 16:00 | NUR ---
PT TO ROOM 228 VIA BED. PT ORIENTED TO ROOM AND CALL LIGHT WITHIN REACH. NSR
[2020-01-28] MEDS ORDERED: NEURONTIN 300M300 M2 PO (17:33)
[2020-01-29] VITALS: BP 143/59
[2020-01-29 04:00] VITALS: BP 133/51
[2020-01-29 08:00] VITALS: BP 122/72
[2020-01-29 12:00] VITALS: BP 129/69
[2020-01-29 16:00] VITALS: BP 157/86
--- NOTE | 2020-01-29 18:19 | NUR ---
A/O X4,VSS,ISOLATION MAINTAINED FOR COVID-COVID PCR SENT.NEW IV INSERTED IN LEFT HAND.NO C/O PAIN.PT IS ANXIOUS AT TIMES AND CAN BE IRRITABLE.CALL LIGHT WITHIN REACH.WILL CONTINUE TO MONITOR FOR DURAITON OF SHIFT.
[2020-01-30] VITALS: BP 128/51
[2020-01-30 04:00] VITALS: BP 121/52
[2020-01-30 07:30] VITALS: BP 135/68
[2020-01-30 12:00] VITALS: BP 135/79
--- NOTE | 2020-01-30 12:58 | CON ---
[address] [address] CONSULTATION Name: GWENDOLYN PAULINO Room: [address] IN .R.#: [id number] Admission: 01/28/20 Attend Phys: Brandin Garner Discharge: Date of : 55 Report #: [id number] THIS REPORT FOR: //name// cc: Beata Rivera Linda J. DO ~ DATE OF SERVICE: 01/29/2020 CONSULT REQUESTED BY: Raghavendra Luna DO. INDICATION FOR CONSULTATION: COVID-19. HISTORY OF PRESENT ILLNESS: This is a 64-year-old female, past medical history includes a history of lung cancer. She has had resection in the past. There is mention of asthma on the records; however, at first glance, it appears more likely to me that she has underlying COPD, also has borderline apnea-hypopnea index on the last sleep study likely has obstructive sleep apnea now. She has now presented with a high-grade fever up to 102 degrees Fahrenheit with a nonproductive cough and increasing shortness of breath on exertion, some at rest as well. She tested positive for COVID-19. Currently, she is not on supplemental oxygen. Earlier, she has required oxygen at 2 liters by nasal cannula to maintain O2 saturation in the low 90s. She does complain of fever and chills. REVIEW OF SYSTEMS: Includes joint pain, no swelling of lower extremities, no calf pain. Review of systems is otherwise negative for 10 points. PAST MEDICAL HISTORY: Lung cancer in the left lung, status post resection in the past. There is mention of asthma in the records, it appears at first glance more likely that she has COPD instead. Apnea-hypopnea index is borderline at 4.9 by now, she likely has obstructive sleep apnea. Foot surgery, hypertension, diabetes, coronary artery disease, stents in 2017, I do not have a recent echo available, depression, oral surgery, GERD, hyperlipidemia, fatty liver, back pain. SOCIAL HISTORY: There is an extensive history of smoking in the past, has now discontinued. No known history of heavy alcohol use or illegal drug use. CURRENT MEDICATIONS: List in [facility] reviewed. HOME MEDICATIONS: List also in [facility] reviewed. FAMILY HISTORY: There is no pertinent family history known at this time. PHYSICAL EXAMINATION: GENERAL: She is alert, [place] [address] CONSULTATION Name: GWENDOLYN PAULINO Room: [address]#: [id number] Admission: 01/28/20 Attend Phys: Brandin Garner Discharge: Date of : 55 Report #: [id number] VITAL SIGNS: Pulse of 88 and a blood pressure of 122/72. She is saturating 92%. She is not on supplemental oxygen. Respiratory rate is 16. She is afebrile. HEENT: Head is normocephalic and atraumatic. She appears to have a narrow airway. Body mass index is 36. NECK: Does not show raised JVP. CHEST: Breath sounds are mildly decreased at the left lung base. The rest of the chest is clear. HEART: Regular, no murmur. ABDOMEN: Soft and nontender. EXTREMITIES: Lower extremities show no edema, no calf tenderness. LABORATORY DATA: The patient's chest x-ray is reviewed. There is an opacity at the left lung base. It does look larger than the previous chest x-rays. The patient's lab work is in [facility] and this is reviewed. ASSESSMENT AND PLAN: 1. COVID-19. I agree with dexamethasone at 6 mg as well as remdesivir as is currently ordered. In case the patient's respiratory status worsens, we can consider increasing the dose of dexamethasone and also consider convalescent plasma. We will hold off on both of those for now. Recommend following LFTs closely while she is on remdesivir. 2. Bronchial asthma/possible chronic obstructive pulmonary disease. She is on dexamethasone as above. We will also go ahead and order an albuterol inhaler. 3. Obstructive sleep apnea. The patient's apnea-hypopnea index from the last sleep study from several years ago was 4.8. It appears likely that it is above 5 now or in other words that she has obstructive sleep apnea. Therefore, if her respiratory status worsens, then we will have a low threshold of switching her over to a negative pressure room for administration of BiPAP while asleep. 4. History of lung cancer. The opacity at the left lung base looks larger than the previous chest x-rays. Recommended incentive spirometry and ambulation if possible, we will otherwise only watch. There is no definite evidence of secondary bacterial infection and therefore, I did not order broad-spectrum antibiotics for now, certainly will be a consideration if she worsens. 5. Mild renal insufficiency. The patient's previous creatinines are also at times mildly elevated. It is possible there is a chronic component as well. She is on IV fluids. I agree with the same, but watch her fluid status closely. 6. Evaluation for thromboembolic phenomena. We will do a D-dimer. If elevated, recommend venous Dopplers. We will hold off on a CTA chest as she appears to be high risk for contrast nephropathy. Thanks for this consultation. <ELECTRONICALLY SIGNED> By: Mamadou Etienne MD 01/30/20 1258 1635 1708Ayaritza Etienne MD /nt
[2020-01-30 15:27] LABS: ABSOLUTE LYMPHOCYTES 1.1 thou/uL (0.8-5.3); ABSOLUTE MONOCYTES 0.9 thou/uL (0.0-1.2); ABSOLUTE NEUTROPHILS 6.1 thou/uL (1.6-8.1); BASOPHILS 0.1 %; HEMATOCRIT 39.3 % (37.0-47.0); HEMOGLOBIN 12.9 gm/dL (12.0-15.0); LYMPHOCYTES 13.2 %; MCH 30.5 pg (26.0-34.0); MCHC 32.9 g/dL (28.0-37.0); MCV 92.6 fL (80.0-100.0); MONOCYTES 10.6 %; NUCLEATED RBCS 0 /100WBC; PLATELET COUNT* 203 thou/uL (150-400); POLYS 76.1 %; RBC 4.25 mil/uL (4.20-5.00); RDW-CV 13.5 % (10.5-14.5)
[2020-01-30 15:57] LABS: ALBUMIN 2.8 g/dL (3.4-5.0); CALCIUM 8.6 mg/dL (8.5-10.1); CREATININE 1.5 mg/dL (0.6-1.3); POTASSIUM 3.9 mmol/L (3.5-5.1); TOTAL BILIRUBIN 0.3 mg/dL (<0.1-1.0); TOTAL PROTEIN 6.7 g/dL (6.4-8.2)
[2020-01-30 16:00] VITALS: BP 118/52
--- NOTE | 2020-01-30 17:26 | NUR ---
CM SPOKE TO THE PT TO COMPLETE CM ASSESSMENT. PT CURRENTLY COVID POSITIVE AND UNDER ENHANCED PRECAUTIONS, SO CM CONTACTED THE PT VIA THE HOSPITAL ROOM PHONE TO DISCUSS ASSESSMENT. PT A&0, INDEPENDENT WITH ADL'S, AND DRIVES. PT RESIDES AT HOME WITH SPOUSE. PT USES 0 DME. PT HAS 0 HX OF HH OR SNF. CM WILL REMAIN AVAILABLE TO ASSIST AND FOLLOW NEEDED.
[2020-01-31] VITALS (7 sets, daily range): BP systolic 114–143; BP diastolic 57–84
[2020-01-31 10:27] LABS: CALCIUM 8.6 mg/dL (8.5-10.1); CREATININE 1.1 mg/dL (0.6-1.3); POTASSIUM 3.9 mmol/L (3.5-5.1)
--- NOTE | 2020-01-31 13:33 | NUR ---
ASSUMED PT CARE AT 0730, PT AOX4, NO C/O PAIN OR SHORTNESS OF BREATH. PT IN ISO FOR COVID. PT WORKED W/ DR AND DC ORDERS RECEIVED. DC INSTRUCTIONS AND F/U APPTS GIVEN TO PT, PT COMMUNICATES UNDERSTANDING OF DC TEACHING. IV AND DIRECTOR PUBLIC REMOVED. PT AWAITING RIDE FROM AND HANDED OFF TO LYNN GAGE IN THE MEAN TIME. PT STILL ON UNIT WHEN I LEFT THE UNIT.
== END 2020-01-31 12:45 | disposition home or self-care (01) | DRG 177 ==
LOC: M.ERS 10:06 → M.TBA-ER 12:08 → M.2W 12:08
PROVIDERS: Internal Medicine Critical Care Medicine; Nurse Practitioner Family; ADMIT Internal Medicine; ATTEND Internal Medicine
PROC: XW033E5 Introduction of Remdesivir Anti-infective into Peripheral Vein, Percutaneous Approach, New Technology Group 5 (ICD-10-PCS; principal; 2020-01-28)
DX: U07.1 COVID-19 (principal); J12.89 Other viral pneumonia; J96.01 Acute respiratory failure with hypoxia; E87.1 Hypo-osmolality and hyponatremia; R65.10 Systemic inflammatory response syndrome (SIRS) of non-infectious origin without acute organ dysfunction; J44.0 Chronic obstructive pulmonary disease with (acute) lower respiratory infection; J45.909 Unspecified asthma, uncomplicated; E66.9 Obesity, unspecified; M19.90 Unspecified osteoarthritis, unspecified site; F32.9 Major depressive disorder, single episode, unspecified; E78.00 Pure hypercholesterolemia, unspecified; I25.10 Atherosclerotic heart disease of native coronary artery without angina pectoris; E86.0 Dehydration; G47.33 Obstructive sleep apnea (adult) (pediatric); I12.9 Hypertensive chronic kidney disease with stage 1 through stage 4 chronic kidney disease, or unspecified chronic kidney disease; K21.9 Gastro-esophageal reflux disease without esophagitis; E11.22 Type 2 diabetes mellitus with diabetic chronic kidney disease; N18.9 Chronic kidney disease, unspecified; Z88.8 Allergy status to other drugs, medicaments and biological substances; Z85.118 Personal history of other malignant neoplasm of bronchus and lung; Z95.5 Presence of coronary angioplasty implant and graft; Z68.37 Body mass index [BMI] 37.0-37.9, adult; Z90.711 Acquired absence of uterus with remaining cervical stump; Z79.4 Long term (current) use of insulin; Z88.6 Allergy status to analgesic agent; Z87.891 Personal history of nicotine dependence; Z92.21 Personal history of antineoplastic chemotherapy; Z92.3 Personal history of irradiation

== ENCOUNTER 2020-02-04 09:13 | Inpatient (IN) | payer MEDICARE, OTHER ==
[~2020-02-04] VITALS: Ht 162.6 cm; Wt 105.7 kg
[~2020-02-04 09:13] MED LIST changes: +NEURONTIN 300M300 M2 PO
[2020-02-04 09:19] VITALS: BP 151/68
[2020-02-04 10:09] LABS: ABSOLUTE LYMPHOCYTES 0.8 thou/uL (0.8-5.3); ABSOLUTE MONOCYTES 0.6 thou/uL (0.0-1.2); ABSOLUTE NEUTROPHILS 8.3 thou/uL (1.6-8.1); BASOPHILS 0.3 %; EOSINOPHILS 0.2 %; HEMATOCRIT 40.3 % (37.0-47.0); HEMOGLOBIN 13.8 gm/dL (12.0-15.0); LYMPHOCYTES 8.5 %; MCH 30.9 pg (26.0-34.0); MCHC 34.3 g/dL (28.0-37.0); MCV 90.1 fL (80.0-100.0); MONOCYTES 6.4 %; MPV 8.7 fl. (7.2-11.1); NUCLEATED RBCS 0 /100WBC; PLATELET COUNT* 251 thou/uL (150-400); POLYS 84.6 %; RBC 4.47 mil/uL (4.20-5.00); RDW-CV 13.5 % (10.5-14.5); WBC 9.8 thou/uL (4.0-11.0)
[2020-02-04 10:10] LABS: CALCIUM 8.4 mg/dL (8.5-10.1); CREATININE 1.1 mg/dL (0.6-1.3); POTASSIUM 3.6 mmol/L (3.5-5.1)
[2020-02-04 10:20] LABS: ALBUMIN 2.7 g/dL (3.4-5.0); TOTAL BILIRUBIN 0.9 mg/dL (<0.1-1.0); TOTAL PROTEIN 7.3 g/dL (6.4-8.2)
[2020-02-04 14:30] VITALS: BP 155/72
--- NOTE | 2020-02-04 16:46 | EKG ---
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 Filterer: HAROON : 1955 Requested By: Maximino Reyes Order Number: [id number] MD: Parviz Gamble Measurements Intervals [place] Rate: 82 P: 42 MS: 154 QRS: 11 QRSD: 86 T: 18 QT: 465 QTc: 543 Interpretive Statements Sinus rhythm Borderline T abnormalities, diffuse leads Prolonged QT interval Compared to ECG 01/28/2020 11:05:12 Prolonged QT interval now present T-wave abnormality still present Electronically Signed On 02-04-2020 16:46:40 SKI TOPPER by Parviz Gamble [email or web address] <ELECTRONICALLY SIGNED> By: Parviz Gamble MD, FACC 02/04/20 1646 1053 1053 Parviz Gamble MD, FACC /EPI
[2020-02-04 18:30] VITALS: BP 166/69
[2020-02-04 22:28] VITALS: BP 174/72
[2020-02-04 23:49] VITALS: BP 157/71
[2020-02-05] VITALS (7 sets, daily range): BP systolic 148–162; BP diastolic 70–85
[2020-02-05 05:18] LABS: CALCIUM 8.8 mg/dL (8.5-10.1); POTASSIUM 3.6 mmol/L (3.5-5.1)
[2020-02-05 05:32] LABS: ABSOLUTE LYMPHOCYTES 0.6 thou/uL (0.8-5.3); ABSOLUTE MONOCYTES 0.4 thou/uL (0.0-1.2); ABSOLUTE NEUTROPHILS 4.8 thou/uL (1.6-8.1); BASOPHILS 0.2 %; HEMATOCRIT 41.9 % (37.0-47.0); HEMOGLOBIN 14.3 gm/dL (12.0-15.0); LYMPHOCYTES 10.8 %; MCH 30.8 pg (26.0-34.0); MCHC 34.1 g/dL (28.0-37.0); MCV 90.6 fL (80.0-100.0); MONOCYTES 6.6 %; MPV 8.7 fl. (7.2-11.1); NUCLEATED RBCS 0 /100WBC; PLATELET COUNT* 293 thou/uL (150-400); POLYS 82.4 %; RBC 4.63 mil/uL (4.20-5.00); RDW-CV 13.8 % (10.5-14.5); WBC 5.8 thou/uL (4.0-11.0)
--- NOTE | 2020-02-05 05:50 | NUR ---
PT ADMITTED TO 111 @ ABOUT 2240. PT ALERT AND ORIENTED. VSS ON 7L. O2 SATTING 90's-88's. PT PUMPED UP THIS AM PER RT TO 10L HFNC. PT TOOK MEDS WHOLES. THIS AM PT COMPLAINING OF AYALA. TYLENOL GIVEN. DR COYLE ORDERED ONE TIME 15M OF TORADOL. STRESSED MORE FIRM EDUCATION OF PT ON COVID RELATED BODY ACHES AND PAIN. PT'S ADM HX AND ASSESSMENT DONE. PT ORIENTED TO AND CALL LIGHT FALL PRECAUTION IN PLACE. WILL CONTINUE TO MONITOR.
--- NOTE | 2020-02-05 17:53 | NUR ---
PT A&OX4 VSS. PT SBA TO BSC. PT REMAINS ON 10L O2, SAT 93%. IV TO LAC DC'D AND NEW MIDLINE ACCESS PLACED IN LFA BY ARIANA BAILEY. IV TO R HAND REMAINS PATENT. DRESSING C/D/I. PT IS ACCUCHECK, INSULIN ADMINISTERED INDICATED. PT C/O BLE DISCOMFORT. PRN TYLENOL ADMINISTERED, PT REPORTS DECREASED PAIN. PT RESTING IN ROOM WITH CALL LIGHT AND PHONE IN REACH. WILL CONTINUE TO MONITOR.
--- NOTE | 2020-02-06 05:14 | NUR ---
ASSUMED PT'S CARE THIS PM SHIFT. PT ALERT AND OREINTED. ANXIOUS. PT BARELY SLEPT THIS SHIFT. MEDS GIVEN PER EMAR. PRN TYELNOL GIVEN THIS SHIFT. PT ATEMPTED BIPAP. DID NOT TOLERATE FOR MORE THAN 15 MINS ON IT. PT WAS SCREAMING TO HAVE SOMEONE TAKE IT OFF. SECOND PLASMA GIVEN ORDERED. HOPSITALIS6 FOR SOMETHING FOR ANXIETY, NO NEW ORDERES . PULM UPDATED ON BIPAP. VOICED PT CAN BE OFF OF IT. DID NOT FEEL COMFORTABLE TO GIVE ANTIAN
[2020-02-06 06:46] LABS: HEMATOCRIT 40.5 % (37.0-47.0); HEMOGLOBIN 13.3 gm/dL (12.0-15.0); MCH 29.9 pg (26.0-34.0); MCHC 32.8 g/dL (28.0-37.0); MPV 8.3 fl. (7.2-11.1); NUCLEATED RBCS 0 /100WBC; PLATELET COUNT* 359 thou/uL (150-400); RBC 4.45 mil/uL (4.20-5.00); RDW-CV 13.7 % (10.5-14.5); WBC 13.5 thou/uL (4.0-11.0)
[2020-02-06 06:58] LABS: PROTIME 10.6 Seconds (9.20-11.50)
[2020-02-06 07:12] LABS: CALCIUM 8.9 mg/dL (8.5-10.1); CREATININE 1.3 mg/dL (0.6-1.3); MAGNESIUM 2.1 mg/dL (1.8-2.4); POTASSIUM 4.1 mmol/L (3.5-5.1); TOTAL BILIRUBIN 0.7 mg/dL (<0.1-1.0); TOTAL PROTEIN 7.9 g/dL (6.4-8.2)
[2020-02-06 07:50] VITALS: BP 142/70
[2020-02-06 08:09] LABS: ABSOLUTE LYMPHOCYTES 1.1 thou/uL (0.8-5.3); ABSOLUTE MONOCYTES 0.5 thou/uL (0.0-1.2); ABSOLUTE NEUTROPHILS 11.9 thou/uL (1.6-8.1); ATYPICAL LYMPHS 2 %; PLATELET ESTIMATE ADEQUATE
[2020-02-06 12:20] VITALS: BP 132/70
[2020-02-06 16:41] VITALS: BP 147/68
[2020-02-06 20:00] VITALS: BP 151/75
[2020-02-06 22:00] VITALS: BP 151/75
[2020-02-07] VITALS (7 sets, daily range): BP systolic 136–153; BP diastolic 62–76
[2020-02-07 05:06] LABS: ABSOLUTE LYMPHOCYTES 0.8 thou/uL (0.8-5.3); ABSOLUTE MONOCYTES 0.7 thou/uL (0.0-1.2); ABSOLUTE NEUTROPHILS 10.1 thou/uL (1.6-8.1); BASOPHILS 0.2 %; HEMATOCRIT 41.5 % (37.0-47.0); HEMOGLOBIN 13.5 gm/dL (12.0-15.0); LYMPHOCYTES 7.1 %; MCH 29.9 pg (26.0-34.0); MCHC 32.6 g/dL (28.0-37.0); MCV 91.8 fL (80.0-100.0); MONOCYTES 5.8 %; MPV 8.3 fl. (7.2-11.1); NUCLEATED RBCS 0 /100WBC; PLATELET COUNT* 335 thou/uL (150-400); POLYS 86.9 %; RBC 4.52 mil/uL (4.20-5.00); RDW-CV 13.9 % (10.5-14.5); WBC 11.6 thou/uL (4.0-11.0)
[2020-02-07 05:38] LABS: ALBUMIN 2.8 g/dL (3.4-5.0); CALCIUM 9.7 mg/dL (8.5-10.1); CREATININE 1.3 mg/dL (0.6-1.3); POTASSIUM 4.6 mmol/L (3.5-5.1); TOTAL BILIRUBIN 0.6 mg/dL (<0.1-1.0); TOTAL PROTEIN 7.4 g/dL (6.4-8.2)
--- NOTE | 2020-02-07 06:08 | NUR ---
ASSUMED PT'S CARE @ 1900. PT ALERT AND ORIENTED. VSS ON 8L HFNC. MEDS VGIVEN PER EMAR. PT HAD BED BATH WITH RN ASSISTANCE. ORAL CARE PROVIDED. HAIR SHAMPOOED AND COMBED. PT SLEPT THROUGH THE NIGHT. NO COMPLAINTS OF HEADACHE. HOURLY ROUNDINGS. Q4 VS REMAINED STABLE. PT UP AD DANIKA TO BSC. ENCOURAGED TO CALL WHEN NEEDING ASSISTANCE. CALL LIGHT WITHIN REACH. WILL CONTINUE TO MONITOR.
--- NOTE | 2020-02-07 08:43 | CON ---
[address] [address] CONSULTATION Name: GWENDOLYN PAULINO Room: [address] IN [facility]#: [id number] Admission: 02/04/20 Attend Phys: Deo Genao MD Discharge: Date of : 55 Report #: [id number] THIS REPORT FOR: //name// cc: Beata Rivera Linda J. DO ~ DATE OF SERVICE: 02/05/2020 CONSULT HAS BEEN REQUESTED BY: Deo Genao MD INDICATION FOR CONSULTATION: Acute hypoxemic respiratory failure secondary to COVID-19. HISTORY OF PRESENT ILLNESS: A 64-year-old female with past medical history is as mentioned below. The patient was only recently admitted to this hospital with COVID-19, was treated with dexamethasone as well as remdesivir. At that time, there was no evidence of secondary bacterial infection and the patient did not receive a broad-spectrum antibiotics. She does have a history of lung cancer as well as obstructive lung disease and her apnea-hypopnea index on her last sleep borderline at 4.8. The patient has now developed worsening symptoms again. She has been increasingly short of breath. She was in room air at the time of discharge. She desaturated to around 10 liters nasal cannula this morning. Has had a cough with scanty sputum production, no chest pain, does feel weak and debilitated. She did have a high-grade fever during the last hospitalization. This time, she has only had low-grade fever of 37.5. She did have a CTA chest performed overnight, which does show new infiltrates. There are no pulmonary emboli identified. The patient has disturbed sleep at night as well as sleepiness during the day. REVIEW OF SYSTEMS: For 12 points is negative except as mentioned above. PAST MEDICAL HISTORY: Lung cancer in the left lung, status post resection, I do not have details available. There is mention of asthma, on the records, it is possible that she has COPD instead. Apnea-hypopnea index was 4.8 on the last sleep study, which is borderline, appears likely that she has higher now and she does have sleep apnea, foot surgery, hypertension, diabetes, coronary artery disease, status post stents, I do not have a recent echo available, depression, oral surgery, GERD, hyperlipidemia, fatty liver, back pain, recent admission with COVID-19. SOCIAL HISTORY: Extensive history of smoking, has now discontinued. No known history of heavy alcohol use or illegal drug use. CURRENT MEDICATIONS: List in [employer] [place] [address] CONSULTATION Name: GWENDOLYN PAULINO Room: [address]#: [id number] Admission: 02/04/20 Attend Phys: Deo Genao MD Discharge: Date of : 55 Report #: [id number] HOME MEDICATIONS: List in [employer] reviewed. FAMILY HISTORY: No pertinent family history. PHYSICAL EXAMINATION: GENERAL: She is alert, awake and oriented. VITAL SIGNS: In the records reviewed. Blood pressure is on the higher side, requiring 9-10 liters oxygen to maintain O2 saturation in the low 90s. HEENT: Head is normocephalic and atraumatic. She appears to have a narrow airway. Body mass index is elevated to 40. CHEST: Breath sounds bilaterally decreased more decreased at the left lung base. No added sounds. HEART: Regular, no murmur. ABDOMEN: Soft and nontender. EXTREMITIES: Lower extremities: No edema, no calf tenderness. SKIN: Dry and intact. NEUROLOGICAL: Moves all extremities bilaterally equally and spontaneously with no focal deficit identified. LABORATORY DATA: The patient's lab work as well as chest x-ray and CT chest are in [employer] and these are reviewed. ASSESSMENT/PLAN: 1. Acute hypoxemic respiratory failure secondary to COVID-19. There are new infiltrates. I suspect that she now has a secondary bacterial infection, which is the likely reason for her decompensation. At this time, we will continue to titrate oxygen. Considering that she appears to have underlying obstructive sleep apnea, start a BiPAP and APAP mode while asleep. 2. COVID-19, I agree with dexamethasone as well as remdesivir as currently prescribed and follow LFTs. 3. Bronchial asthma/possible COPD, dexamethasone as above, we will also give her Brovana scheduled and DuoNebs p.r.n. 4. Pulmonary infiltrates/pneumonia. It appears likely that she now has bacterial pneumonia, ordered Levaquin. We will do cultures and serologies. Nasal swab for MRSA. If she fails to improve, we will broaden coverage. 5. Mild fluid overload. The patient is also receiving convalescent plasma 1 unit already ordered by the primary service. In fact recommended going ahead and doing a second unit as well to get antibody levels up quicker. We will give her diuresis with this and also replace potassium. 6. History of lung cancer, left lung. 7. Evaluation for thromboembolic phenomena. CTA chest does not show pulmonary emboli. We will do D-dimer in the morning. If elevated, we will also do venous Dopplers. 8. Deep venous thrombosis prophylaxis, Lovenox. 9. History of gastroesophageal reflux disease, Protonix. 10. Clostridium difficile prophylaxis, Florastor. [place] [address] CONSULTATION Name: GWENDOLYN PAULINO Room: [address] IN M.R.#: [id number] Admission: 02/04/20 Attend Phys: Deo Genao MD Discharge: Date of : 55 Report #: [id number] Thanks for this consultation. <ELECTRONICALLY SIGNED> By: Mamadou Etienne MD 02/07/20 0843 1859 2028Ayaritza Etienne MD /nt
--- NOTE | 2020-02-07 14:00 | NUR ---
PT.KNOWN FROM RECENT ADMISSION LAST WEEK. CAME BACK IN FOR INCREASE SOA. SHE LIVES WITH HER . IS NORMALLY INDEPENDENT. NO USE OF DME,HOME HEALTH OR SNF. PLAN IS TO RETURN HOME AT DISCHARGE. URSZULA SCHNEIDER POS.
--- NOTE | 2020-02-07 18:05 | NUR ---
PT AO X4 AND EXTREMELY ANXIOUS AT BEGINING OF SHIFT, SHE WAS SITTING ON THE BEDSIDE SHAKING HER LEG NERVOUSLY. 9L HFNC WITH SAT IN MID 80s, TURNED TO 10L HFNC AND SAT WAS 92% SHE HAS MAINTAINED THIS ALL DAY. PT IS PLEASANT AND ENGAGES IN CONVERSATION, EATS MOST OF MEAL TRAYS AND IS DRINKING WATER. SHE ASKS APPROPRIATE QUESTIONS AND GOT TO CHAIR FOR DINNER. SHE HAS BEEN USING THE BSC AND HAVING ADEQUATE CLEAR YELLOW URINE. SHE IS ANXIOUS TO GO HOME. SHE IS GETTING IV ABX AND STERIOIDS PER ORDER. BLOOD SUGAR HAS BEEN HIGH AND SHE IS GETTING SSI, MEAL COVERAGE AND LONG ACTING INSULIN.
[2020-02-08 04:41] VITALS: BP 156/72
[2020-02-08 05:22] LABS: ABSOLUTE LYMPHOCYTES 0.7 thou/uL (0.8-5.3); ABSOLUTE MONOCYTES 0.6 thou/uL (0.0-1.2); ABSOLUTE NEUTROPHILS 8.2 thou/uL (1.6-8.1); BASOPHILS 0.1 %; HEMATOCRIT 40.7 % (37.0-47.0); HEMOGLOBIN 13.5 gm/dL (12.0-15.0); LYMPHOCYTES 7.3 %; MCH 30.2 pg (26.0-34.0); MCHC 33.2 g/dL (28.0-37.0); MCV 90.9 fL (80.0-100.0); MONOCYTES 6.4 %; MPV 8.2 fl. (7.2-11.1); NUCLEATED RBCS 0 /100WBC; PLATELET COUNT* 322 thou/uL (150-400); POLYS 86.2 %; RBC 4.48 mil/uL (4.20-5.00); RDW-CV 13.8 % (10.5-14.5); WBC 9.5 thou/uL (4.0-11.0)
[2020-02-08 05:35] LABS: CALCIUM 8.3 mg/dL (8.5-10.1); CREATININE 1.2 mg/dL (0.6-1.3); POTASSIUM 4.8 mmol/L (3.5-5.1)
--- NOTE | 2020-02-08 06:24 | NUR ---
PATIENT SLEPT WELL DURING THIS SHIFT. PT ABLE TO PIVOT TO COMMODE TO VOID. PT C/O HEADACHE AND RECEIVED TYLENOL 2 TABS AT HS. DENIES PAIN AT THIS TIME. PT WITH SALINE LOCK IN LT FOREARM AND RT WRIST. PT WITH DIMINISHED LUNG SOUNDS. PT REFUSING CPAP DURING THE NIGHT. PT DENIES NEEDS AT THIS TIME. FREQUENTLY USED ITEMS AND CALL LIGHT WITHIN REACH. SIDERAILS UPX2. WILL CONTINUE TO MONITOR.
[2020-02-08 08:30] VITALS: BP 142/72
--- NOTE | 2020-02-08 11:15 | NUR ---
Nutrition: Pt admitted. Consult for recent wt loss and lack of appetite. Per [employer], wt hx shows usual wt of 140s. Admit wt was recorded as 216#, but today's wt is 235#. Per nursing notes, pt is eating >75% of meals and drinking well. RD did not enter room d/t COVID. H/o DM, OBE. BG 200s, alb 2.8, prealb 27.8. No nutrition interventions needed at this time. Mild risk. RD available.
[2020-02-08 12:16] VITALS: BP 114/70
[2020-02-08 16:04] VITALS: BP 156/71
--- NOTE | 2020-02-08 19:37 | NUR ---
PT AO X4 LYING IN BED AT TIME OF ASSESSMENT. SHE IS GETTING DEPRESSED WITH THE ISOLATION OF THE COVID PROTOCOL. PT BLOOD SUGAR HAS BEEN ELEVATED WITH THE STEROID USE, INSULIN PER PROTOCOL. 10 L NC WITH LUNGS MORE CLEAR THAN PREVIOUS DAY. HER COUGH IS MINIMAL WITH LESS PRODUCTION TODAY. PT HAD ALBUMIN TODAY AND THEN IV INFILTRATED. LEVAQUIN ADMINISTERED IN THE RT ARM ALSO INFILTRATED. PT STATES SHE WILL NOT GET ANY MORE IVs. PT WAS ENCOURAGED TO GET UP OUT OF BED FOR MEALS BUT REFUSED, SHE STATED IT WAS TOO HARD TO GET BACK INTO BED. PT WAS GIVEN MIRALX THIS AM, LAST BM TWO DAYS AGO.
[2020-02-08 20:00] VITALS: BP 137/88
[2020-02-08 23:06] LABS: MYCOPLASMA PNEUMONIA IgG 235 U/mL (0-99); MYCOPLASMA PNEUMONIA IgM <770 U/mL (0-769)
[2020-02-09] VITALS: BP 144/75
[2020-02-09 04:00] VITALS: BP 146/66
[2020-02-09 05:27] LABS: ABSOLUTE LYMPHOCYTES 0.6 thou/uL (0.8-5.3); ABSOLUTE MONOCYTES 0.7 thou/uL (0.0-1.2); ABSOLUTE NEUTROPHILS 8.5 thou/uL (1.6-8.1); BASOPHILS 0.2 %; HEMATOCRIT 40.8 % (37.0-47.0); HEMOGLOBIN 13.8 gm/dL (12.0-15.0); LYMPHOCYTES 5.9 %; MCH 30.5 pg (26.0-34.0); MCHC 33.8 g/dL (28.0-37.0); MCV 90.4 fL (80.0-100.0); MONOCYTES 7.2 %; MPV 8.3 fl. (7.2-11.1); NUCLEATED RBCS 0 /100WBC; PLATELET COUNT* 332 thou/uL (150-400); POLYS 86.7 %; RBC 4.51 mil/uL (4.20-5.00); RDW-CV 13.5 % (10.5-14.5); WBC 9.8 thou/uL (4.0-11.0)
[2020-02-09 06:02] LABS: ALBUMIN 3.4 g/dL (3.4-5.0); CALCIUM 8.6 mg/dL (8.5-10.1); CREATININE 1.3 mg/dL (0.6-1.3); MAGNESIUM 2.2 mg/dL (1.8-2.4); POTASSIUM 4.1 mmol/L (3.5-5.1); TOTAL BILIRUBIN 1.1 mg/dL (<0.1-1.0); TOTAL PROTEIN 7.4 g/dL (6.4-8.2)
--- NOTE | 2020-02-09 06:18 | NUR ---
ASSUMED CARE OF PT AFTER REPORT AT 1930. PT A&0X4. VSS. PHYSICAL ASSESSMENT COMPLETED AND CHARTED. PT ON O2 AT 9L NC-STILL REFUSING CPAP/BIPAP. PT VERY ANXIOUS AT THE START OF THE SHIFT-DR KEEN MADE AWARE WITH NEW ORDER. PT DENIES PAIN. CALL LIGHT WITHIN REACH.
[2020-02-09 08:00] VITALS: BP 129/65
--- NOTE | 2020-02-09 11:24 | NUR ---
3817 ASSUMED CARE OF PATIENT. SEE DOCUMENTED ASSESSMENT. PT IS ON 9LPM HIGH FLOW CANNULA, HAS HAND TREMORS. VERY DISCOURAGED AND WANTS TO GO HOME. ENCOURAGED PT AND TOLD HER THAT I WOULD SPEAK WITH PHYSICIAN REGARDING HER HOME MEDS
[2020-02-09 12:00] VITALS: BP 153/73
[2020-02-09 16:00] VITALS: BP 136/71
--- NOTE | 2020-02-09 17:57 | NUR ---
PATIENT PROGRESSING TOWARDS GOALS. HOME MEDS RESUMED. LESS DYSPNEA WITH EXERTION. REMAINS ON 9LPM HIGH FLOW CANNULA. BLOOD GLUCOSE HIGH EARLIER THIS SHIFT DUE TO NON-DIET SODA. PT HAS BEEN RELAXED AND CALM THIS AFTERNOON.
[2020-02-09 20:00] VITALS: BP 151/83
[2020-02-10] VITALS: BP 145/69
[2020-02-10 04:00] VITALS: BP 126/63
--- NOTE | 2020-02-10 04:34 | NUR ---
ASSUMED CARE OF PT AFTER REPORT AT 1930. PT A&OX4. VSS. PHYSICAL ASSESSMENT COMPLETED AND CHARTED. PT ON O2 AT 9L NC. PT TRACING SR ON TELE. PT DENIES ANY PAIN. PT ABLE TO SLEEP WELL ON BED. CALL LIGHT WITHIN REACH.
[2020-02-10 05:24] LABS: HEMATOCRIT 39.9 % (37.0-47.0); HEMOGLOBIN 13.3 gm/dL (12.0-15.0); MCH 30.3 pg (26.0-34.0); MCHC 33.4 g/dL (28.0-37.0); MCV 90.8 fL (80.0-100.0); MPV 8.5 fl. (7.2-11.1); NUCLEATED RBCS 0 /100WBC; PLATELET COUNT* 331 thou/uL (150-400); RDW-CV 13.5 % (10.5-14.5); WBC 10.3 thou/uL (4.0-11.0)
[2020-02-10 05:49] LABS: ALBUMIN 3.1 g/dL (3.4-5.0); CALCIUM 8.6 mg/dL (8.5-10.1); CREATININE 1.3 mg/dL (0.6-1.3); POTASSIUM 4.4 mmol/L (3.5-5.1); TOTAL PROTEIN 6.8 g/dL (6.4-8.2)
[2020-02-10 06:46] LABS: ABSOLUTE LYMPHOCYTES 0.3 thou/uL (0.8-5.3); ABSOLUTE MONOCYTES 0.4 thou/uL (0.0-1.2); ABSOLUTE NEUTROPHILS 9.6 thou/uL (1.6-8.1); PLATELET ESTIMATE ADEQUATE
[2020-02-10 08:00] VITALS: BP 136/65
[2020-02-10 12:30] VITALS: BP 138/72
[2020-02-10 16:00] VITALS: BP 142/69
--- NOTE | 2020-02-10 17:36 | NUR ---
PT HAS BEEN IN BED ALL DAY, SHE HAS BEEN ON 8L HFNC ALL DAY. BLOOD SUGARS ARE RUNNING IN THE 200-300 WITH NEW INSULIN SCALE GIVEN PER EMAR. MIRALAX WAS GIVEN PER PT REQUEST. PT LUNGS ARE CLEAR/DIMINISHED. PT SPOKE TO FAMILY VIA PHONE AND HAD VISITORS TO THE WINDOW WHICH CHEERED HER UP. HAS TESTED POSITIVE WELL.
[2020-02-10 20:00] VITALS: BP 143/68
[2020-02-11] VITALS: BP 129/56
[2020-02-11 04:00] VITALS: BP 128/65
[2020-02-11 04:55] LABS: ABSOLUTE LYMPHOCYTES 0.7 thou/uL (0.8-5.3); ABSOLUTE MONOCYTES 0.9 thou/uL (0.0-1.2); ABSOLUTE NEUTROPHILS 11.9 thou/uL (1.6-8.1); BASOPHILS 0.1 %; HEMATOCRIT 40.3 % (37.0-47.0); LYMPHOCYTES 5.2 %; MCH 29.4 pg (26.0-34.0); MCHC 32.2 g/dL (28.0-37.0); MCV 91.3 fL (80.0-100.0); MONOCYTES 6.5 %; MPV 8.2 fl. (7.2-11.1); NUCLEATED RBCS 0 /100WBC; PLATELET COUNT* 319 thou/uL (150-400); POLYS 88.2 %; RBC 4.41 mil/uL (4.20-5.00); RDW-CV 13.7 % (10.5-14.5); WBC 13.5 thou/uL (4.0-11.0)
[2020-02-11 05:28] LABS: CALCIUM 8.4 mg/dL (8.5-10.1); CREATININE 1.2 mg/dL (0.6-1.3); POTASSIUM 4.5 mmol/L (3.5-5.1)
--- NOTE | 2020-02-11 06:26 | NUR ---
ASSUMED CARE OF PT AFTER REPORT AT 1930. PT A&OX4. VSS. PHYSICAL ASSESSMENT COMPLETED AND CHARTED. PT ON O2 AT 8L NC. PT TRACING SR ON TELE. PT DENIES ANY PAIN. PT ABLE TO SLEEP WELL ON BED. CALL LIGHT WITHIN REACH.
[2020-02-11 08:00] VITALS: BP 136/65
[2020-02-11 12:48] VITALS: BP 125/65
[2020-02-11 17:02] VITALS: BP 143/57
--- NOTE | 2020-02-11 17:36 | NUR ---
PT HAS HAD A BETTER DAY TODAY, UP TO CHAIR AND AMBULATING IN ROOM, OXYGEN HAS BEEN TITRATED TO 7L HFNC. SHE IS NOT SOA, COUGH IS DIMINISHING. BLOOD SUGARS WERE 200s AM AND NOON, PM WAS 400s, INSULIN WAS GIVEN PER EMAR. NSR ON TELE, PAIN CONTROLLED. PT IS ANXIOUS TO GO HOME.
[2020-02-12] VITALS: BP 134/62
[2020-02-12 04:00] VITALS: BP 148/61
[2020-02-12 06:26] LABS: HEMATOCRIT 39.4 % (37.0-47.0); HEMOGLOBIN 12.8 gm/dL (12.0-15.0); MCH 29.9 pg (26.0-34.0); MCHC 32.6 g/dL (28.0-37.0); MCV 91.6 fL (80.0-100.0); MPV 8.4 fl. (7.2-11.1); NUCLEATED RBCS 0 /100WBC; PLATELET COUNT* 294 thou/uL (150-400); RDW-CV 13.7 % (10.5-14.5); WBC 11.7 thou/uL (4.0-11.0)
[2020-02-12 06:39] LABS: ALBUMIN 2.7 g/dL (3.4-5.0); CALCIUM 8.4 mg/dL (8.5-10.1); CREATININE 1.3 mg/dL (0.6-1.3); MAGNESIUM 2.3 mg/dL (1.8-2.4); POTASSIUM 4.3 mmol/L (3.5-5.1); TOTAL BILIRUBIN 0.9 mg/dL (<0.1-1.0); TOTAL PROTEIN 5.9 g/dL (6.4-8.2)
[2020-02-12 08:30] VITALS: BP 146/69
[2020-02-12 08:47] LABS: ABSOLUTE LYMPHOCYTES 0.7 thou/uL (0.8-5.3); ABSOLUTE MONOCYTES 0.8 thou/uL (0.0-1.2); ABSOLUTE NEUTROPHILS 10.2 thou/uL (1.6-8.1); PLATELET ESTIMATE ADEQUATE
[2020-02-12 11:38] VITALS: BP 135/51
--- NOTE | 2020-02-12 16:00 | NUR ---
REMAINS ON [facility] O2 AT 3LITERS. O2 REQUIRMENTS IMPROVING SLOWLY. REAMINS ON IV STEROIDS. NEEDS TO TRY SITTING UP FOR SHORT PERIODS OF TIME. IF REMAINS STABLE MAY DISCHARGE HOME SOON. MAY NEED HOME O2.
[2020-02-12 16:04] VITALS: BP 133/68
--- NOTE | 2020-02-12 18:57 | NUR ---
PT UP IN ROOM WITH SB ASSIST. O2@4L NC. TOLERATING PO WELL. NSR
[2020-02-12 20:00] VITALS: BP 136/73
[2020-02-13] VITALS (8 sets, daily range): BP systolic 136–143; BP diastolic 66–69
[2020-02-13 05:14] LABS: ABSOLUTE LYMPHOCYTES 0.9 thou/uL (0.8-5.3); ABSOLUTE MONOCYTES 1.1 thou/uL (0.0-1.2); ABSOLUTE NEUTROPHILS 12.1 thou/uL (1.6-8.1); BASOPHILS 0.1 %; HEMATOCRIT 37.1 % (37.0-47.0); HEMOGLOBIN 12.3 gm/dL (12.0-15.0); LYMPHOCYTES 6.3 %; MCHC 33.3 g/dL (28.0-37.0); MCV 90.2 fL (80.0-100.0); MONOCYTES 7.7 %; MPV 8.7 fl. (7.2-11.1); NUCLEATED RBCS 0 /100WBC; PLATELET COUNT* 291 thou/uL (150-400); POLYS 85.9 %; RBC 4.11 mil/uL (4.20-5.00); RDW-CV 13.7 % (10.5-14.5); WBC 14.1 thou/uL (4.0-11.0)
[2020-02-13 05:30] LABS: ALBUMIN 2.6 g/dL (3.4-5.0); CALCIUM 8.6 mg/dL (8.5-10.1); CREATININE 1.1 mg/dL (0.6-1.3); POTASSIUM 4.5 mmol/L (3.5-5.1); TOTAL BILIRUBIN 0.6 mg/dL (<0.1-1.0); TOTAL PROTEIN 5.9 g/dL (6.4-8.2)
[2020-02-13] MEDS ORDERED: DOXYCYCLINE 10100 MG PO (10:05)
[2020-02-13] MEDS ORDERED: DEXAMETHASONE1 MG PO (10:05)
--- NOTE | 2020-02-13 13:27 | NUR ---
CM FAXED ORDERS TO [facility]. VIJAYA STATED THEY ARE ABLE TO ACCEPT PT ON [facility]. CM CONTACT PT VIA TELEPHONE AND PROVIDED HOME HEALTH INSTURCTIONS. CM FAXED SCRIPT, REST & EXERCISE NOTE AND ORDERS TO MECHE AT [facility] [phone].
--- NOTE | 2020-02-13 15:50 | NUR ---
RECEIVED REPORT. ASSUMED CARE OF PT AROUND 0730. AM ASSESSMENT AND VITALS COMPLETED CHARTED. COMMERCIAL BAKING TEACHER IN PLACE. MEDS PER EMAR. PT DENIED PAIN OR DISCOMFORT. DOCTORS ROUNDED. DISCHARGE ORDERS RECEIVED. DISCHARGE COMPLETED DOCUMENTED. PT AWARE TO GET PRESCRIPTIONS FROM PHARMACY. PT AWARE OF FOLLOW UP APPOINTMENTS. IV AND COMMERCIAL BAKING TEACHER REMOVED. ALL BELONGINGS GATHERED AND SENT OUT WITH THE PT. PORTABLE O2 TANK ARRIVED AND SENT OUT WITH PT. PT AWARE THAT HOME HEALTH WILL CALL HER TO SET UP THEIR FIRST VISIT. PT LEFT UNIT IN WC WITH NURSING STAFF. PT LEFT HOSPITAL IN CAR WITH FAMILY.
== END 2020-02-13 15:50 | disposition home health service (06) | DRG 871 ==
LOC: M.ERS 09:13 → M.TBA-ER 10:53 → M.ORTHSURG 10:53
PROVIDERS: Emergency Medicine Emergency Medical Services; Internal Medicine Critical Care Medicine; ADMIT Internal Medicine; ATTEND Internal Medicine
DX: A41.89 Other specified sepsis (principal); U07.1 COVID-19; J12.89 Other viral pneumonia; J96.01 Acute respiratory failure with hypoxia; Z68.41 Body mass index [BMI] 40.0-44.9, adult; G47.33 Obstructive sleep apnea (adult) (pediatric); E66.01 Morbid (severe) obesity due to excess calories; I10 Essential (primary) hypertension; E11.9 Type 2 diabetes mellitus without complications; J45.909 Unspecified asthma, uncomplicated; M19.90 Unspecified osteoarthritis, unspecified site; E78.00 Pure hypercholesterolemia, unspecified; F32.9 Major depressive disorder, single episode, unspecified; K21.9 Gastro-esophageal reflux disease without esophagitis; E78.5 Hyperlipidemia, unspecified; K76.0 Fatty (change of) liver, not elsewhere classified; G40.909 Epilepsy, unspecified, not intractable, without status epilepticus; I25.10 Atherosclerotic heart disease of native coronary artery without angina pectoris; E87.70 Fluid overload, unspecified; N28.9 Disorder of kidney and ureter, unspecified; Z92.21 Personal history of antineoplastic chemotherapy; Z95.5 Presence of coronary angioplasty implant and graft; Z85.118 Personal history of other malignant neoplasm of bronchus and lung; Z92.3 Personal history of irradiation; Z79.899 Other long term (current) drug therapy; Z79.82 Long term (current) use of aspirin; Z79.4 Long term (current) use of insulin; Z88.8 Allergy status to other drugs, medicaments and biological substances; Z87.891 Personal history of nicotine dependence; Z91.19 Patient's noncompliance with other medical treatment and regimen; Z23 Encounter for immunization; Z90.712 Acquired absence of cervix with remaining uterus

== ENCOUNTER → 2020-03-31 | Outpatient (CLI) | payer MEDICARE, OTHER ==
[~2020-03-31] MED LIST changes: +DEXAMETHASONE1 MG PO; +DOXYCYCLINE 10100 MG PO
[2020-03-31 16:45] LABS: CALCIUM 9.7 mg/dL (8.5-10.1); CREATININE 1.1 mg/dL (0.6-1.3); MAGNESIUM 1.5 mg/dL (1.8-2.4); POTASSIUM 3.7 mmol/L (3.5-5.1)
== END ==
LOC: M.RAD 15:24
PROVIDERS: ATTEND Internal Medicine Critical Care Medicine
DX: G47.10 Hypersomnia, unspecified (principal); R60.0 Localized edema; R06.02 Shortness of breath; M25.48 Effusion, other site

== ENCOUNTER → 2020-04-15 | Outpatient (CLI) | payer MEDICARE, OTHER ==
--- NOTE | 2020-04-15 13:56 | 2DMMODE ---
[place] [address] 2 D/M-MODE ECHOCARDIOGRAM Name: KELTONJAVIGWENDOLYN Mcmahon Erasmo Room: [facility]#: [id number] Admission: 04/15/20 Attend Phys: Mamadou Etienne MD Discharge: Date of : 55 Date of Service: 04/15/20 1355 Report #: [id number] THIS REPORT FOR: cc: Beata Rivera Linda J. DO Liston, Michael J. MD [facility] ~ APPROVED REPORT Study performed: 04/15/2020 10:51:22 EXAM: Comprehensive 2D, Doppler, and color-flow Echocardiogram Patient Location: Out-Patient BSA: 2.17 HR: 90 bpm BP: 119/60 mmHg Other Information Study Quality: Technically Limited Technically limited study due to lung disease. Indications Dyspnea 2D Dimensions IVSd: 13.02 (7-11mm) LVOT Diam: 20.24 (18-24mm) LVDd: 30.81 mm PWd: 13.18 (7-11mm) Ascending Ao: 30.12 (22-36mm) LVDs: 24.89 (25-40mm) Aortic Root: 31.06 mm Volumes Left Atrial Volume (Systole) LA ESV Index: 11.40 mL/m2 Aortic Valve AoV Peak David.: 0.95 m/s AO Peak Gr.: 3.64 mmHg LVOT Max P.15 mmHg AO Mean Gr.: 1.90 mmHg LVOT Mean P.02 mmHg LVOT Max V: 0.73 m/s AO V2 VTI: 16.62 cm LVOT Mean V: 0.46 m/s SANTIAGO (VTI): 2.32 cm2 LVOT V1 VTI: 11.98 [place] [address] 2 D/M-MODE ECHOCARDIOGRAM Name: GWENDOLYN PAULINO Room: [facility]#: [id number] Admission: 04/15/20 Attend Phys: Mamadou Etienne MD Discharge: Date of : 55 Date of Service: 04/15/20 1355 Report #: [id number] E/A Ratio: 0.59 MV Decel. Time: 256.92 ms MV E Max David.: 0.38 m/s MV PHT: 74.51 ms MVA (PHT): 2.95 cm2 TDI E/Lateral E': 6.33 E/Medial E': 7.60 Medial E' David.: 0.05 m/s Lateral E' David.: 0.06 m/s Pulmonary Valve PV Peak David.: 0.72 m/s PV Peak Gr.: 2.06 mmHg Tricuspid Valve RAP Estimate: 5.00 mmHg TR Peak Gr.: 24.14 mmHg RVSP: 29.14 mmHg PA Pressure: 29.14 mmHg Left Ventricle The left ventricle is normal size. There is normal LV segmental wall motion. Mild concentric left ventricular hypertrophy. Left ventricular systolic function is normal. LVEF is 50-55%. Grade I - abnormal relaxation pattern. Right Ventricle The right ventricle is normal size. The right ventricular systolic function is normal. Atria The left atrium size is normal. The right atrium size is normal. Aortic Valve The aortic valve is normal in structure. No aortic regurgitation is present. There is no aortic valvular stenosis. Mitral Valve The mitral valve is normal in structure. There is no mitral valve regurgitation noted. No evidence of mitral valve stenosis. Tricuspid Valve The tricuspid valve is normal in structure. Mild tricuspid regurgitation. The RVSP is 30-35 mmHg[place] [address] 2 D/M-MODE ECHOCARDIOGRAM Name: GWENDOLYN PAULINO Room: [facility]#: [id number] Admission: 04/15/20 Attend Phys: Mamadou Etienne MD Discharge: Date of : 55 Date of Service: 04/15/20 1355 Report #: [id number] The pulmonary valve is normal in structure. There is no pulmonic valvular regurgitation. Great Vessels The aortic root is normal in size. IVC is normal in size and collapses >50% with inspiration. Pericardium There is no pericardial effusion. <Conclusion> The left ventricle is normal size. Mild concentric left ventricular hypertrophy. Left ventricular systolic function is normal. LVEF is 50-55%. Grade I - abnormal relaxation pattern. There is normal LV segmental wall motion. Mild tricuspid regurgitation. The RVSP is 30-35 mmHg. IVC is normal in size and collapses >50% with inspiration. <ELECTRONICALLY SIGNED> By: Dameon Orozco MD, FACC 04/15/20 1355 1355 1355 Dameon Orozco MD, FACC /INF
== END ==
LOC: M.CRD 11:00
PROVIDERS: ATTEND Internal Medicine Critical Care Medicine
DX: G47.10 Hypersomnia, unspecified (principal); I07.1 Rheumatic tricuspid insufficiency

== ENCOUNTER → 2020-05-22 | Outpatient (CLI) | payer MEDICARE, OTHER ==
[~2020-05-22] MED LIST changes: +ADVAIR 250-501 EACH INH; +FUROSEMIDE 40 M40 MG PO; +HAIR SKIN NAIL1 EACH PO; +HYDROCHLOROTHIA25 M2 PO; +INSULIN AS100 UNIT/3 SUBQ; +KLOR-CON 10 ER10 MEQ PO; +LIPITOR40 MG PO; +LOSARTAN-HCTZ; +MAGNESIUM OXID400 M2 PO; +METHOCARBAMOL500 M2 PO; +NORVASC10 MG PO; -NORVASC5 MG PO; +OMEGA 3 500 SO1 EACH PO; +POTASSIUM99 M1 PO; +SEROQUEL 50 MG50 M1 PO; +SINGULAIR 10 MG10 MG PO; +TRADJENTA5 MG; +TRELEGY ELLIPT1 EAC1 INH; +VALTREX1000 MG PO; +VENTOLIN HFA; +VITAMIN C500 M2 PO; -VITAMIN D2000 UNIT PO; +VITAMIN D3 PO; +XULTOPHY 100 UNI3 ML SUBQ
== END ==
LOC: M.PC 09:54
PROVIDERS: ATTEND Anesthesiology Pain Medicine
DX: M54.5 Low back pain (principal); M79.672 Pain in left foot; M79.671 Pain in right foot; E11.9 Type 2 diabetes mellitus without complications; I10 Essential (primary) hypertension; M19.90 Unspecified osteoarthritis, unspecified site; I51.9 Heart disease, unspecified; J98.4 Other disorders of lung; Z82.0 Family history of epilepsy and other diseases of the nervous system; Z88.8 Allergy status to other drugs, medicaments and biological substances; Z79.899 Other long term (current) drug therapy

== ENCOUNTER → 2020-05-26 | Outpatient (CLI) | payer MEDICARE, OTHER ==
[2020-05-26 11:42] LABS: CALCIUM 9.4 mg/dL (8.5-10.1); CREATININE 1.4 mg/dL (0.6-1.3); POTASSIUM 4.1 mmol/L (3.5-5.1)
== END ==
LOC: M.LAB 10:58
PROVIDERS: ATTEND Internal Medicine Critical Care Medicine
DX: E87.79 Other fluid overload (principal)

== ENCOUNTER → 2020-06-02 | Outpatient (CLI) | payer MEDICARE, OTHER | LOC: M.ULTRA 10:45 | PROVIDERS: ATTEND Internal Medicine Critical Care Medicine | DX: N28.9 Disorder of kidney and ureter, unspecified (principal) ==

== ENCOUNTER → 2020-06-05 | Outpatient (CLI) | payer MEDICARE, OTHER ==
[2020-06-05 13:15] LABS: CALCIUM 9.7 mg/dL (8.5-10.1); CREATININE 1.4 mg/dL (0.6-1.3); POTASSIUM 4.4 mmol/L (3.5-5.1)
== END ==
LOC: M.LAB 12:49
PROVIDERS: ATTEND Internal Medicine Critical Care Medicine
DX: E87.79 Other fluid overload (principal); R06.02 Shortness of breath; R60.0 Localized edema

== ENCOUNTER 2020-07-03 01:55 | Inpatient (IN) | payer MEDICARE, OTHER ==
[~2020-07-03] VITALS: Ht 162.6 cm; Wt 121.4 kg
[2020-07-03] VITALS (7 sets, daily range): BP systolic 110–149; BP diastolic 47–83
[~2020-07-03 01:55] MED LIST changes: +HYDROCHLOROTH12.5 M1 PO; -HYDROCHLOROTHIA25 M2 PO
[2020-07-03] MEDS ORDERED: NORVASC5 MG PO (02:20)
[2020-07-03 02:39] LABS: ABSOLUTE EOSINOPHILS 0.2 thou/uL (0.0-0.7); ABSOLUTE LYMPHOCYTES 2.5 thou/uL (0.8-5.3); ABSOLUTE MONOCYTES 1.2 thou/uL (0.0-1.2); ABSOLUTE NEUTROPHILS 4.1 thou/uL (1.6-8.1); BASOPHILS 0.2 %; EOSINOPHILS 2.9 %; HEMATOCRIT 41.6 % (37.0-47.0); HEMOGLOBIN 13.9 gm/dL (12.0-15.0); MCH 29.7 pg (26.0-34.0); MCHC 33.4 g/dL (28.0-37.0); MCV 88.9 fL (80.0-100.0); MONOCYTES 14.9 %; MPV 8.6 fl. (7.2-11.1); NUCLEATED RBCS 0 /100WBC; PLATELET COUNT* 218 thou/uL (150-400); RBC 4.68 mil/uL (4.20-5.00)
[2020-07-03 02:42] LABS: CALCIUM 9.6 mg/dL (8.5-10.1); CREATININE 1.4 mg/dL (0.6-1.3)
[2020-07-03 02:52] LABS: ALBUMIN 3.3 g/dL (3.4-5.0); TOTAL BILIRUBIN 0.4 mg/dL (<0.1-1.0); TOTAL PROTEIN 7.1 g/dL (6.4-8.2)
[2020-07-03 03:08] LABS: APTT 23.8 Seconds (25.0-31.3); PROTIME 10.3 Seconds (9.20-11.50)
[2020-07-03 04:22] LABS: URINE BILIRUBIN NEGATIVE (Negative); URINE BLOOD NEGATIVE (Negative); URINE COLOR YELLOW; URINE GLUCOSE-RANDOM NEGATIVE (Negative); URINE KETONES NEGATIVE (Negative); URINE LEUKOCYTES-REFLEX TRACE (Negative); URINE NITRITE-REFLEX NEGATIVE (Negative); URINE PROTEIN NEGATIVE (Negative)
[2020-07-03 04:23] LABS: URINE CLARITY SL CLOUDY
[2020-07-03 04:27] LABS: MAGNESIUM 1.8 mg/dL (1.8-2.4)
[2020-07-03 04:41] LABS: BACTERIA-REFLEX >30 Many /HPF (None Seen); CASTS None Seen /LPF (None Seen); CRYSTALS None Seen /LPF (None Seen); MUCUS 4-6 Moderate strn/LPF (None Seen); SQUAMOUS 4-10 Moderate /LPF (0-3); TRANSITIONAL EPITHEL CELL 0-3 Few /LPF (None Seen); URINE RBC 0-2 Rare /HPF (0-2); URINE WBC-REFLEX 6-15 Few /HPF (0-5); WBC CLUMPS Few (None Seen)
--- NOTE | 2020-07-03 07:20 | NUR ---
CHANGE OF SHIFTGE OF SHIFT REPORT GIVEN PATIENT SEEN IN BED RESTING ASSUMED PATIENT CARE
--- NOTE | 2020-07-03 11:57 | EKG ---
[place] [address] ELECTROCARDIOGRAM REPORT Name: GWENDOLYN PAULINO Room: [address] ADM IN .R.#: [id number] Admission: 07/03/20 Attend Phys: Eriberto Armijo, Discharge: Date of : 55 Date of Service: 07/03/20 0210 Report #: [id number] THIS REPORT FOR: //name// [facility] ED Test Date: 2020-07-03 Test Time: 02:10:47 Pat Name: GWENDOLYN PAULINO Department: Room: [facility] Gender: F Gas Analyst: TB : 1955 Requested By: Gaby Singh Order Number: [id number] MD: Dameon Orozco Measurements Intervals [place] Rate: 123 P: UT: QRS: 6 QRSD: 98 T: -30 QT: 304 QTc: 435 Interpretive Statements Atrial fibrillation Nonspecific repol abnormality, inferior leads Compared to ECG 02/04/2020 10:53:56 Early repolarization now present Sinus rhythm no longer present T-wave abnormality no longer present Prolonged QT interval no longer present Electronically Signed On 07-03-2020 11:57:08 CDT by Dameon Orozco [email or web address] <ELECTRONICALLY SIGNED> By: Dameon Orozco MD, FACC 07/03/20 1157 9 9 Dameon Orozco MD, FAC /EPI
--- NOTE | 2020-07-03 12:01 | NUR ---
Pt is A&O. Resides at home with her . Independent. Pt has home o2 through [employer] that she wears continuous at 3L, o2 is provided through [employer]. No other DME. Hx of [facility]. No hx of SNF. Goal is home at dc, no needs anticipated. to bring a portable tank at dc. Cardiology following. Anticipate dc in a few days.
--- NOTE | 2020-07-03 13:55 | EKG ---
[place] [address] ELECTROCARDIOGRAM REPORT Name: GWENDOLYN PAULINO Room: [address] ADM IN .R.#: [id number] Admission: 07/03/20 Attend Phys: Eriberto Armijo, Discharge: Date of : 55 Date of Service: 07/03/20 1302 Report #: [id number] THIS REPORT FOR: //name// [facility] Test Date: 2020-07-03 Test Time: 13:02:32 Pat Name: GWENDOLYN PAULINO Department: Room: [address] Gender: F Air Pollution Inspector: : 1955 Requested By: Jagruti Cherry Order Number: [id number] Reading MD: Kenton Garcia Measurements Intervals [place] Rate: 64 P: 47 PA: 163 QRS: 24 QRSD: 92 T: -7 QT: 470 QTc: 485 Interpretive Statements Sinus rhythm Probable left atrial enlargement Borderline T abnormalities, diffuse leads Compared to ECG 07/03/2020 02:10:47 Atrial fibrillation no longer present Electronically Signed On 07-03-2020 13:55:31 CDT by Kenton Garcia [email or web address] <ELECTRONICALLY SIGNED> By: Kenton Garcia MD, [facility] 07/03/20 1355 1302 1302 Kenton Garcia MD, [facility] /EPI
--- NOTE | 2020-07-03 15:25 | 2DMMODE ---
[place] [address] 2 D/M-MODE ECHOCARDIOGRAM Name: JEFFERSONGWENDOLYN A Room: [address] IN [facility]#: [id number] Admission: 07/03/20 Attend Phys: Eriberto Armijo, Discharge: Date of : 55 Date of Service: 07/03/20 1524 Report #: [id number] THIS REPORT FOR: cc: Kim Dsouza NP, Elizabeth NP Liston, Michael J. MD [facility] ~ APPROVED REPORT Study performed: 07/03/2020 13:27:54 EXAM: Limited 2D, Doppler, and color-flow Echocardiogram Patient Location: In-Patient Room #: [facility] Status: routine BSA: 2.20 HR: 63 bpm BP: 112/47 mmHg Rhythm: Atrial Fibrillation Other Information Study Quality: Good Indications Dyspnea Tachycardia 2D Dimensions IVSd: 12.41 (7-11mm) LVDd: 40.08 mm PWd: 9.07 (7-11mm) Volumes Left Atrial Volume (Systole) LA ESV Index: 16.80 mL/m2 Tricuspid Valve RAP Estimate: 5.00 mmHg TR Peak Gr.: 31.06 mmHg RVSP: 36.00 mmHg PA Pressure: 36.00 mmHg Left Ventricle The left ventricle is normal size. There is normal LV segmental wall motion. There is normal left ventricular wall thickness. The left ventricular systolic function is normal. LVEF is 60-65%. [place] [address] 2 D/M-MODE ECHOCARDIOGRAM Name: GWENDOLYN PAULINO Room: [address] IN .R.#: [id number] Admission: 07/03/20 Attend Phys: Eriberto Armijo, Discharge: Date of : 55 Date of Service: 07/03/20 1524 Report #: [id number] Right Ventricle The right ventricle is normal size. The right ventricular systolic function is normal. Atria The left atrium size is normal. The right atrium size is normal. Aortic Valve The aortic valve is normal in structure. No aortic regurgitation is present. Mitral Valve The mitral valve is normal in structure. Mild mitral regurgitation. Tricuspid Valve The tricuspid valve is normal in structure. Mild tricuspid regurgitation. The RVSP is 30-35 mmHg. Pulmonic Valve The pulmonary valve is normal in structure. There is no pulmonic valvular regurgitation. Great Vessels The aortic root is normal in size. IVC is normal in size and collapses >50% with inspiration. Pericardium There is no pericardial effusion. <Conclusion> The left ventricle is normal size. There is normal left ventricular wall thickness. The left ventricular systolic function is normal. LVEF is 60-65%. There is normal LV segmental wall motion. Mild mitral regurgitation. Mild tricuspid regurgitation. The RVSP is 30-35 mmHg. <ELECTRONICALLY SIGNED> By: Dameon Orozco MD, FACC 07/03/20 1524 1524 1524 Dameon Orozco MD, FAC /INF
[2020-07-03 16:22] LABS: CALCIUM 10.6 mg/dL (8.5-10.1); CREATININE 1.5 mg/dL (0.6-1.3); POTASSIUM 3.4 mmol/L (3.5-5.1)
[2020-07-03 16:25] LABS: MAGNESIUM 1.8 mg/dL (1.8-2.4); PHOSPHORUS* 4.6 mg/dL (2.5-4.9)
--- NOTE | 2020-07-03 20:00 | NUR ---
RECEIVED REPORT AND ASSUMED CARE OF PT, ASSESSMENT COMPLETED. O2 ON AT 3L/NC, NO SOA NOTED. RT ANKLE WITH 1+ EDEMA. TELEMETRY ON SHOWING SR. DISCUSSED NEW ORDER FOR BIPAP AT HS, STATES SHE HAS TRIED IT IN THE PAST AND COULD NOT TOLERATE IT. TELEMETRY ON SHOWING SR. INDEPENDENT BRP WITH STEADY GAIT. WILL CONT TO MONITOR AND ASSIST NEEDED.
[2020-07-04] VITALS: BP 140/60
[2020-07-04 03:54] VITALS: BP 133/61
[2020-07-04 04:29] LABS: ABSOLUTE LYMPHOCYTES 1.2 thou/uL (0.8-5.3); ABSOLUTE MONOCYTES 0.2 thou/uL (0.0-1.2); ABSOLUTE NEUTROPHILS 11.7 thou/uL (1.6-8.1); BASOPHILS 0.1 %; HEMATOCRIT 44.1 % (37.0-47.0); HEMOGLOBIN 14.5 gm/dL (12.0-15.0); MCH 29.4 pg (26.0-34.0); MCHC 32.8 g/dL (28.0-37.0); MCV 89.6 fL (80.0-100.0); MONOCYTES 1.6 %; NUCLEATED RBCS 0 /100WBC; PLATELET COUNT* 251 thou/uL (150-400); POLYS 89.3 %; RBC 4.92 mil/uL (4.20-5.00); RDW-CV 13.7 % (10.5-14.5); WBC 13.1 thou/uL (4.0-11.0)
[2020-07-04 05:01] LABS: ALBUMIN 3.2 g/dL (3.4-5.0); CALCIUM 9.9 mg/dL (8.5-10.1); CREATININE 1.3 mg/dL (0.6-1.3); MAGNESIUM 1.7 mg/dL (1.8-2.4); POTASSIUM 4.3 mmol/L (3.5-5.1); TOTAL BILIRUBIN 0.3 mg/dL (<0.1-1.0); TOTAL PROTEIN 7.5 g/dL (6.4-8.2)
--- NOTE | 2020-07-04 06:59 | NUR ---
AWAKE FREQ TONIGHT. ABLE TO WEAR BIPAP ONLY 4 HR THEN WENT BACK TO NC AT 3L/NC. TELEMETRY CONT TO SHOW SR. NO CHANGE IN ASSESSMENT. HS GOALS OF REST AND SAFETY ACHIEVED. HOURLY ROUNDING OBSERVED.
[2020-07-04 08:30] VITALS: BP 144/60
--- NOTE | 2020-07-04 09:57 | EKG ---
[place] [address] ELECTROCARDIOGRAM REPORT Name: GWENDOLYN PAULINO Room: [address] ADM IN M.R.#: [id number] Admission: 07/03/20 Attend Phys: Eriberto Armijo, Discharge: Date of : 55 Date of Service: 07/04/2018 Report #: [id number] THIS REPORT FOR: //name// [facility] Test Date: 2020-07-04 Test Time: 09:18:25 Pat Name: GWENDOLYN PAULINO Department: Room: [address] Gender: F Government Clerk: ISABELA : 1955 Requested By: Jagruti Cherry Order Number: [id number] Reading MD: Kenton Garcia Measurements Intervals [place] Rate: 66 P: 37 GA: 138 QRS: 26 QRSD: 88 T: -20 QT: 448 QTc: 470 Interpretive Statements Sinus rhythm Probable left atrial enlargement Borderline T abnormalities, diffuse leads Compared to ECG 07/03/2020 13:02:32 No significant changes Electronically Signed On 07-04-2020 9:57:40 CDT by Kenton Garcia [email or web address] <ELECTRONICALLY SIGNED> By: Kenton Garcia MD, [facility] 07/04/2057 7 7 Kenton Garcia MD, [facility] /EPI
[2020-07-04 11:35] VITALS: BP 135/54
--- NOTE | 2020-07-04 13:59 | NUR ---
Anticipate dc in a few days back to home. No needs anticipated.
--- NOTE | 2020-07-04 15:48 | NUR ---
PT IS ALERT AND ORIENTED BUT FORGETFUL ESPECIALLY WHEN TAKES O2 OFF A LOT AND FORGETS TO PUT BACK ON VERY SOA WITH EXERTION PT NEEDS BIPAP AT HOME AND UNDERSTANDS THIS LS DIMINISHED NO COUGH NOTED TRACE EDEMA IN BILAT ANKLES C/O PAIN IN BILAT LEGS FROM DM BS ARE HIGH FROM STEROIDS CALL LIGHT IN REACH
[2020-07-04 16:00] VITALS: BP 115/52
[2020-07-05 00:10] VITALS: BP 121/45
[2020-07-05 04:49] VITALS: BP 131/49
--- NOTE | 2020-07-05 05:44 | NUR ---
NO ACUTE CHANGES THROUGHOUT SHIFT. SEE CHARTING FOR DETAILS. ALL ROUNDINGS COMPLETED, ALL NEEDS MET.
[2020-07-05 08:00] VITALS: BP 131/63
[2020-07-05] MEDS ORDERED: BAYER CHEWABLE81 MG PO (10:53)
[2020-07-05] MEDS ORDERED: FLORASTOR250 MG PO (10:53)
[2020-07-05] MEDS ORDERED: PREDNISONE 10 M10 MG PO (10:53)
[2020-07-05] MEDS ORDERED: SORINE 80 MG TA80 M1 PO (10:53)
[2020-07-05 11:55] LABS: HEMATOCRIT 42.3 % (37.0-47.0); HEMOGLOBIN 13.9 gm/dL (12.0-15.0); MCH 29.6 pg (26.0-34.0); MCHC 32.8 g/dL (28.0-37.0); MCV 90.1 fL (80.0-100.0); MPV 9.2 fl. (7.2-11.1); NUCLEATED RBCS 0 /100WBC; PLATELET COUNT* 259 thou/uL (150-400); RDW-CV 14.2 % (10.5-14.5); WBC 18.4 thou/uL (4.0-11.0)
[2020-07-05 12:07] LABS: ALBUMIN 3.4 g/dL (3.4-5.0); CALCIUM 9.5 mg/dL (8.5-10.1); CREATININE 1.4 mg/dL (0.6-1.3); POTASSIUM 4.1 mmol/L (3.5-5.1); TOTAL BILIRUBIN 0.3 mg/dL (<0.1-1.0); TOTAL PROTEIN 7.4 g/dL (6.4-8.2)
[2020-07-05 12:32] LABS: ABSOLUTE LYMPHOCYTES 1.5 thou/uL (0.8-5.3); ABSOLUTE NEUTROPHILS 16.9 thou/uL (1.6-8.1); PLATELET ESTIMATE ADEQUATE
--- NOTE | 2020-07-05 13:04 | NUR ---
CM INFORMED BY THE PHYSICIAN OF PLAN FOR THE PT TO D/C HOME TODAY WITH SELF-CARE AND NO CM D/C PLANNING NEEDS. CM WILL REMAIN AVAILABLE TO ASSIST AND FOLLOW NEEDED.
[2020-07-05 15:23] VITALS: BP 131/63
--- NOTE | 2020-07-05 15:40 | NUR ---
DISCHARGE ORDERS RECEIVED - 02 ON 3L PER NC, NO SIGN OR RESPIRATORY DISTRESS. PATIENT AND EDUCATED ON DISCHARGE ORDERS VERBALIZED UNDERSTANDING HAVING NO QUESTIONS - GIVEN WRITTEN DISCHARGE INSTRUCTIONS FOR REINFORCEMENT TEACHING. DC'D WITH ALL PERSONAL BELONGINGS VIA W/C ACCOMPANIED BY .
--- NOTE | 2020-07-07 09:57 | CON ---
[address] [address] CONSULTATION Name: GWENDOLYN PAULINO Room: [address] IN .R.#: [id number] Admission: 07/03/20 Attend Phys: Eriberto Armijo MD Discharge: 07/05/20 Date of : 55 Report #: [id number] THIS REPORT FOR: cc: Kim Dsouza NP, Elizabeth NP Pervez, Adeel MD ~ DATE OF SERVICE: 07/03/2020 REQUESTING PHYSICIAN: Consult has been requested by Dr. Luna. HISTORY OF PRESENT ILLNESS: This is a 64-year-old female I follow her in the office. I had initially seen her last fall when she was admitted with acute hypoxemic respiratory failure secondary to COVID-19 to [facility] last fall. The patient does have a history of lung cancer and previously has had resection of part of her left lung. She does carry a diagnosis of asthma. In addition, I suspect that there is underlying chronic obstructive pulmonary disease as well, the patient does have an extensive history of smoking in the past. The patient does have hypertension. In addition, she has had a longstanding history of fluid overload/swelling of lower extremities. I have been giving her Lasix as an outpatient. It appears that the patient's baseline creatinine returns to essentially normal levels at around 1 or 1.1 when she is fluid overloaded, but at that time, she has significant pedal edema. When she is diuresed, she develops mild elevation in creatinine. The patient amongst other medications has been on Norvasc for control of her blood pressure. Earlier, we had also done a sleep study. It showed considerable hypoxemia consistent with hypoventilation while asleep. The patient, however, did not have obstructive sleep apnea detected during the last sleep study. The patient was planning surgery for a spinal stimulator replacement on the , but yesterday she developed palpitations as well as increase in shortness of breath and therefore came to the Emergency Room. She essentially does not have any other new complaints. She does have swelling of lower extremities, but this in fact may be better than her baseline. She is not complaining of calf pain. She did complain of chest pressure/tightness when she was initially admitted. She was also noted to be in an atrial fibrillation rhythm initially with a heart rate around 130. She is not bringing up more sputum. She does not have more upper respiratory complaints than her baseline. She has had some nasal discharge, which is longstanding. The patient has been saturating in the high 90s on 3 liters of nasal cannula. She has had disturbed sleep at night as well as sleepiness during the day. These complaints are also at baseline. She has had some back pain, which is at baseline. REVIEW OF SYSTEMS: The patient answered to the negative for 12 questions for review of systems except as mentioned [place] [address] CONSULTATION Name: GWENDOLYN PAULINO Room: [address] [place] [facility].#: [id number] Admission: 07/03/20 Attend Phys: Eriberto Armijo MD Discharge: 07/05/20 Date of : 55 Report #: [id number] PAST MEDICAL HISTORY: Bronchial asthma as I suspect that there is a component of COPD as well, ordered PFTs as an outpatient, though the patient had not had these performed yet, lung cancer resection of part of left lung in the past, sleep related hypoventilation and marked nocturnal hypoxemia on the last sleep study. We had, however, not detected obstructive sleep apnea on the last sleep study. Acute hypoxemic respiratory failure secondary to COVID-19 last fall, allergic rhinitis, foot surgery, hypertension, diabetes, coronary artery disease, status post stents, she has a normal left ventricular ejection fraction and does not have elevation in right heart pressures. She has had palpitations in the past; however, I do not see a documented history of atrial fibrillation in the past, hyperlipidemia, fatty liver, back pain at this time, spinal stimulator, hypertension, chronic renal insufficiency as above when she is fluid overloaded. Her creatinine returns to normal around 1.0. When we diurese her for edema, she develops mild elevation in creatinine. I had a renal ultrasound performed recently. It does not show any obstruction. SOCIAL HISTORY: There is an extensive history of smoking in the past, she discontinued it in 2003, previously used to smoke 2 packs a day and smoked for several decades. No known history of heavy alcohol use or illegal drug use. ALLERGIES: SHE HAS HAD COUGH WITH INHIBITORS. SHE HAS HAD ELEVATION IN CREATININE WITH MELOXICAM, ALSO ALLERGY TO LATEX AND CERTAIN BAND-AIDs. CURRENT MEDICATIONS: List in [employer] reviewed. HOME MEDICATIONS: List in [employer] as well as [facility] reviewed. FAMILY HISTORY: There is no known pertinent family history. PHYSICAL EXAMINATION: GENERAL: She is alert, awake and oriented. She does not appear to be in any distress at this time. VITAL SIGNS: She has a pulse of 69 and a blood pressure of 110/83. She is saturating 96-98%. She is on 3 liters nasal cannula, respiratory rate is around 15. She is afebrile with a temperature of 36.9. Body mass index is elevated to 45. HEENT: Head is normocephalic and atraumatic. Pupils are equal and reactive. There is no throat erythema. NECK: Does not show raised JVP, asymmetry, mass or lymph nodes. CHEST: Symmetrical expansion on inspection and palpation. On auscultation, there are mildly decreased breath sounds bilaterally. I do not hear any added sounds. Breath sounds are bilaterally equal. HEART: Regular. [place] [address] CONSULTATION Name: GWENDOLYN PAULINO Room: [address]#: [id number] Admission: 07/03/20 Attend Phys: Eriberto Armijo MD Discharge: 07/05/20 Date of : 55 Report #: [id number] ABDOMEN: Soft and nontender. EXTREMITIES: Lower extremities do show trace to 1+ edema but edema in fact is less than her baseline. There is no calf tenderness. SKIN: Dry and intact. NEUROLOGICAL: Moves all extremities bilaterally equally and spontaneously with no focal deficit identified. LABORATORY DATA: The patient's lab work is in [employer]. This was reviewed. The patient's a chest x-ray, which does show increase in opacification at the left lung base in [facility] also reviewed. ASSESSMENT AND PLAN: 1. Shortness of breath, primarily this appears to be related to atrial fibrillation overnight. There may have been a component of bronchospasm as well. Also, as noted below, the opacity at the left lung base does look larger on her chest x-ray; therefore, it is possible that there is increase in atelectasis as well as infiltrate in this region. It does not appear that she is more fluid overloaded. She has some swelling of lower extremities, but this is better than her baseline. 2. Bronchial asthma exacerbation/chronic obstructive pulmonary disease exacerbation. I had ordered pulmonary function test as an outpatient. The patient has not had this performed as yet. Regardless for now, I agree with a current therapy, which is with nebulized bronchodilators and steroid, if she continues to improve, then I will be inclined to switch her Solu-Medrol over to prednisone tomorrow morning. 3. Atrial fibrillation. My understanding is that she has not been previously diagnosed, but she has had palpitations in the past as well, I would defer management to the Cardiology Service. 4. Pulmonary infiltrate. There is an opacity at the left lung base. This is also seen on previous chest x-rays. She has also had surgery on the left lung for lung cancer, previously, but this does appear to be larger than previous x-rays. For now, therefore, I would treat this as pneumonia. I ordered ceftriaxone. We will do a sputum culture as well as nasal swab for methicillin-resistant Staphylococcus aureus. I would like to define this further by doing a CT chest without contrast and then we will reassess this. 5. Sleep-related hypoventilation. She was not diagnosed with obstructive sleep apnea on the last sleep study; however, she does appear to hypoventilate when she is sleeping. She had not met insurance criteria to pay for BiPAP, but she had stated that she will pay out of pocket and obtain a BiPAP for her home and I had ordered the same, but this had not been set up. For now, we will go ahead and place her on a BiPAP here. I will discuss tomorrow with the rn case manager regarding helping her purchase a BiPAP out of pocket for home use. Weight loss certainly will be of benefit. I performed an ambulatory pulse oximetry during the daytime, recently and the patient had not needed oxygen while awake; [address] [address] CONSULTATION Name: GWENDOLYN PAULINO Room: [address] [place] [facility].#: [id number] Admission: 07/03/20 Attend Phys: Eriberto Armijo MD Discharge: 07/05/20 Date of : 55 Report #: [id number] however, she at times was dozing off unintentionally during the day and therefore, I had told her to use 3 liters of oxygen while awake as well as if she does unintentionally doze off, I would expect her to desaturate if not wearing oxygen. 6. Chronic renal insufficiency/fluid overload. As above, when fluid overloaded, her creatinine returns to baseline. When diuresed, her creatinine is mildly elevated. Norvasc may have played a role in her edema as well. I would defer control of her blood pressure to the primary and Cardiology services. We will diurese as indicated. 7. Past medical history of lung cancer, status post surgery, left lung. 8. History of back pain, has a spinal stimulator, is planning a battery change in the near future. 9. History of acute hypoxemic respiratory failure secondary to COVID-19 in fall. She recently had 2 doses of COVID-19. She has reported some lightheadedness/dizziness after both doses. I feel that this is unlikely to be related to the vaccine itself with the exception that the patient may have had anxiety with the vaccine, which potentially can cause her to go into atrial fibrillation if she is anxious. 10. Deep vein thrombosis prophylaxis. She received a full dose of Lovenox in the Emergency Room. If full anticoagulation is not started by the Cardiology Service and she stays in the hospital tomorrow, then I will intend to start Lovenox in the prophylactic dose. Thanks for this consultation. <ELECTRONICALLY SIGNED> By: Mamadou Etienne MD 07/07/20 0957 [id number] Etienne MD /nt
== END 2020-07-05 15:40 | disposition home or self-care (01) | DRG 177 ==
LOC: M.ERS 01:55 → M.2W 04:04 → M.TBA-ER 04:04 → M.2W 04:45
PROVIDERS: Internal Medicine; Internal Medicine Critical Care Medicine; Personal Emergency Response Attendant; ADMIT Internal Medicine; ATTEND Internal Medicine
DX: J69.0 Pneumonitis due to inhalation of food and vomit (principal); J96.21 Acute and chronic respiratory failure with hypoxia; I50.31 Acute diastolic (congestive) heart failure; I13.0 Hypertensive heart and chronic kidney disease with heart failure and stage 1 through stage 4 chronic kidney disease, or unspecified chronic kidney disease; N17.9 Acute kidney failure, unspecified; Z68.42 Body mass index [BMI] 45.0-49.9, adult; I48.20 Chronic atrial fibrillation, unspecified; N39.0 Urinary tract infection, site not specified; J44.0 Chronic obstructive pulmonary disease with (acute) lower respiratory infection; M19.90 Unspecified osteoarthritis, unspecified site; E78.00 Pure hypercholesterolemia, unspecified; F32.9 Major depressive disorder, single episode, unspecified; K21.9 Gastro-esophageal reflux disease without esophagitis; I25.10 Atherosclerotic heart disease of native coronary artery without angina pectoris; E78.5 Hyperlipidemia, unspecified; M54.9 Dorsalgia, unspecified; G47.33 Obstructive sleep apnea (adult) (pediatric); E66.01 Morbid (severe) obesity due to excess calories; K76.0 Fatty (change of) liver, not elsewhere classified; N18.9 Chronic kidney disease, unspecified; E11.22 Type 2 diabetes mellitus with diabetic chronic kidney disease; E86.0 Dehydration; E87.6 Hypokalemia; G40.909 Epilepsy, unspecified, not intractable, without status epilepticus; Z20.822 Contact with and (suspected) exposure to COVID-19; Z87.891 Personal history of nicotine dependence; Z86.16 Personal history of COVID-19; Z90.711 Acquired absence of uterus with remaining cervical stump; Z85.118 Personal history of other malignant neoplasm of bronchus and lung; Z92.21 Personal history of antineoplastic chemotherapy; Z92.3 Personal history of irradiation; Z95.5 Presence of coronary angioplasty implant and graft; Z79.4 Long term (current) use of insulin; Z79.899 Other long term (current) drug therapy; Z88.8 Allergy status to other drugs, medicaments and biological substances; Z91.040 Latex allergy status

== ENCOUNTER 2020-07-15 00:30 | Emergency (ER) | payer MEDICARE, OTHER ==
[~2020-07-15] VITALS: Ht 170.2 cm; Wt 116.1 kg
[~2020-07-15 00:30] MED LIST changes: +BAYER CHEWABLE81 MG PO; +FLORASTOR250 MG PO; +NORVASC5 MG PO; +PREDNISONE 10 M10 MG PO; +SORINE 80 MG TA80 M1 PO
[2020-07-15 00:53] LABS: ABSOLUTE BASOPHILS 0.2 thou/uL (0.0-0.2); ABSOLUTE EOSINOPHILS 0.2 thou/uL (0.0-0.7); ABSOLUTE LYMPHOCYTES 4.2 thou/uL (0.8-5.3); ABSOLUTE MONOCYTES 0.9 thou/uL (0.0-1.2); ABSOLUTE NEUTROPHILS 11.2 thou/uL (1.6-8.1); BASOPHILS 1.4 %; EOSINOPHILS 1.1 %; HEMATOCRIT 41.8 % (37.0-47.0); HEMOGLOBIN 13.7 gm/dL (12.0-15.0); LYMPHOCYTES 25.2 %; MCH 29.8 pg (26.0-34.0); MCHC 32.9 g/dL (28.0-37.0); MCV 90.8 fL (80.0-100.0); MONOCYTES 5.2 %; MPV 9.1 fl. (7.2-11.1); NUCLEATED RBCS 0 /100WBC; PLATELET COUNT* 280 thou/uL (150-400); POLYS 67.1 %; RBC 4.61 mil/uL (4.20-5.00); RDW-CV 13.7 % (10.5-14.5); WBC 16.7 thou/uL (4.0-11.0)
[2020-07-15 01:02] LABS: CALCIUM 9.6 mg/dL (8.5-10.1); CREATININE 1.4 mg/dL (0.6-1.3); POTASSIUM 4.3 mmol/L (3.5-5.1)
[2020-07-15 01:05] LABS: INR 0.9; PROTIME 9.3 Seconds (9.20-11.50)
[2020-07-15 01:13] LABS: ALBUMIN 2.9 g/dL (3.4-5.0); MAGNESIUM 1.9 mg/dL (1.8-2.4); TOTAL BILIRUBIN 0.4 mg/dL (<0.1-1.0); TOTAL PROTEIN 6.5 g/dL (6.4-8.2)
[2020-07-15 02:40] VITALS: BP 118/70
[2020-07-15 02:40] LABS: URINE BILIRUBIN NEGATIVE (Negative); URINE BLOOD NEGATIVE (Negative); URINE CLARITY CLEAR; URINE COLOR YELLOW; URINE GLUCOSE-RANDOM 3+ (Negative); URINE KETONES NEGATIVE (Negative); URINE LEUKOCYTES-REFLEX NEGATIVE (Negative); URINE NITRITE-REFLEX NEGATIVE (Negative); URINE PROTEIN NEGATIVE (Negative); URINE SPECIFIC GRAVITY <= 1.005 (1.005-1.030); URINE UROBILINOGEN 0.2 E.U./dl (0.2-1.0)
--- NOTE | 2020-07-15 14:18 | EKG ---
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 : 1955 Requested By: Janina Tubbs Order Number: [id number] MD: Dameon Orozco Measurements Intervals [place] Rate: 126 P: [place]: QRS: 28 QRSD: 86 T: 7 QT: 290 QTc: 420 Interpretive Statements Atrial fibrillation Repolarization abnormality, prob rate related Baseline wander in lead(s) V2,V4,V5,V6 Compared to ECG 07/04/2020 09:18:25 Early repolarization now present Sinus rhythm no longer present T-wave abnormality no longer present Electronically Signed On 07-15-2020 14:18:33 CDT by Dameon Orozco [email or web address] <ELECTRONICALLY SIGNED> By: Dameon Orozco MD, FACC 07/15/20 1418 0034 0034 Dameon Orozco MD, FAC /EPI
--- NOTE | 2020-07-15 14:19 | EKG ---
[place] [address] ELECTROCARDIOGRAM REPORT Name: NEOLisandroGWENDOLYN Zimmerman Room: [facility]#: [id number] Admission: 07/15/20 Attend Phys: Discharge: 07/15/20 Date of : 55 Date of Service: 07/15/20 0151 Report #: [id number] THIS REPORT FOR: //name// 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[place] : 1955 Requested By: Janina Tubbs Order Number: [id number] MD: Dameon Orozco Measurements Intervals [place] Rate: 71 P: 26 VT: 164 QRS: 11 QRSD: 92 T: -16 QT: 410 QTc: 446 Interpretive Statements Sinus rhythm Probable left atrial enlargement Borderline repolarization abnormality Compared to ECG 07/15/2020 00:34:30 Atrial fibrillation no longer present Electronically Signed On 07-15-2020 14:18:53 CDT by Dameon Orozco [email or web address] <ELECTRONICALLY SIGNED> By: Dameon Orozco MD, FACC 07/15/20 1418 0151 0151 Dameon Orozco MD, [facility] /EPI
== END 2020-07-15 02:45 | disposition home or self-care (01) ==
LOC: M.ERS 00:30
PROVIDERS: Emergency Medicine
DX: I48.20 Chronic atrial fibrillation, unspecified (principal); E11.65 Type 2 diabetes mellitus with hyperglycemia; Z20.822 Contact with and (suspected) exposure to COVID-19; I10 Essential (primary) hypertension; I25.10 Atherosclerotic heart disease of native coronary artery without angina pectoris; J44.9 Chronic obstructive pulmonary disease, unspecified; M19.90 Unspecified osteoarthritis, unspecified site; G47.30 Sleep apnea, unspecified; E78.00 Pure hypercholesterolemia, unspecified; K21.9 Gastro-esophageal reflux disease without esophagitis; Z95.5 Presence of coronary angioplasty implant and graft; Z88.8 Allergy status to other drugs, medicaments and biological substances; Z90.711 Acquired absence of uterus with remaining cervical stump; Z91.040 Latex allergy status

== ENCOUNTER → 2020-07-17 | Outpatient (CLI) | payer MEDICARE, OTHER ==
[~2020-07-17] MED LIST changes: -PROTONIX40 M1 PO; +TRELEGY ELLIPT1 EACH INH
--- NOTE | 2020-07-31 11:31 | PF ---
[address] [address] PULMONARY FUNCTION REPORT Name: JEFFERSONGWENDOLYN Erasmo Room: [facility]#: [id number] Admission: 07/17/20 Attend Phys: Mamadou Etienne MD Discharge: Date of : 55 Report #: [id number] THIS REPORT FOR: cc: Kim Dsouza NP, Elizabeth NP Pervez, Adeel MD ~ DOC #: [id number] Mamadou Etienne MD DATE OF VISIT: 07/17/2020 PULMONARY FUNCTION TEST SPIROMETRY: The FEV1/FVC ratio is normal at 75% with the FVC is decreased to 78%. The FEV1 is also decreased to 77%. The FEF 25-75 was decreased to 54%. After the administration of a bronchodilator, there is no significant increase in any of these values. The patient's post-bronchodilator FEV1 is noted to be 1.94 L. LUNG VOLUMES: The total lung capacity is increased to 129% with residual volume increased to 186%. DIFFUSION CAPACITY: The DLCO as adjusted for hemoglobin is decreased to 43%. IMPRESSION: 1. There is a restrictive pattern on spirometry. The lung volumes, however, indicate hyperinflation, the likely underlying etiology is moderate obstruction without evidence of reversibility. 2. As above, the lung volumes are consistent with hyperinflation. 3. The DLCO as adjusted for hemoglobin is decreased to 43%. MD KEEGAN Dorantes/ELGIN <ELECTRONICALLY SIGNED> By: Mamadou Etienne MD 07/31/20 1131 0551 2038Ayaritza Etienne MD /nt
== END ==
LOC: M.PUL 07-10 13:30
PROVIDERS: ATTEND Internal Medicine Critical Care Medicine
DX: J45.40 Moderate persistent asthma, uncomplicated (principal); R06.00 Dyspnea, unspecified; Z88.8 Allergy status to other drugs, medicaments and biological substances

== ENCOUNTER 2020-07-31 12:34 | Inpatient (IN) | payer MEDICARE, OTHER ==
[~2020-07-31] VITALS: Ht 162.6 cm; Wt 122.0 kg
--- NOTE | ~2020-07-31 | CON ---
[address] [address] CONSULTATION Name: KELTONJAVIGWENDOLYN Mcmahon Erasmo Room: [address] [place] .#: [id number] Admission: 07/31/20 Attend Phys: Brandin Wilson Discharge: Date of : 55 Report #: [id number] THIS REPORT FOR: cc: Kim Dsouza NP, Elizabeth NP Pervez, Adeel MD ~ DOC #: [id number] Mamadou Etienne MD DATE OF CONSULTATION: 08/01/2020 CONSULT REQUESTED BY: Dr. Yates. INDICATION FOR CONSULTATION: Shortness of breath. HISTORY OF PRESENT ILLNESS: A 64-year-old female. Past medical history is as mentioned below. I see her in the office. She has a history of COPD and was recently discharged after an admission with COPD exacerbation. The patient called my office yesterday and reported that she was having acute shortness of breath. She had also reported that she had marked desaturations on pulse oximetry she uses at home. We have her on 3 liters of oxygen at home. She had reported O2 saturations down into the 60s. I had therefore recommended that she should come to the Emergency Room and be evaluated. Other than having increasing shortness of breath, which is already better with Solu-Medrol overnight, the patient says she does not have any other new complaints. She has a cough, which is at baseline. She currently is not complaining of chest pain, does not have upper respiratory complaints. She has had swelling of lower extremities, but this is at baseline. She has had disturbed sleep at night as well as sleepiness during the day. These complaints are also at baseline. REVIEW OF SYSTEMS: 12 points are negative except as mentioned above. PAST MEDICAL HISTORY: COPD with a possible component of bronchial asthma, moderate on recent pulmonary function tests; lung cancer, resection of part of the left lung; sleep-related alveolar hypoventilation, marked nocturnal hypoxemia, but apnea-hypopnea index below 5 on the last sleep study; COVID-19 last fall; coronary artery disease, status post stents; paroxysmal atrial fibrillation during the last hospitalization; hyperlipidemia; fatty liver; has a spinal stimulator; back pain; hypertension; she has had issues with fluid overload at times, but we have tried to diurese her, we have reached a euvolemic state, but she has had creatinine elevations then when we cut back on diuretics, her creatinine normalizes when she becomes fluid overloaded; there is a recent echocardiogram, shows a left ventricular ejection fraction of 60-65% with a pulmonary artery systolic of 30-35. SOCIAL HISTORY: Extensive history of smoking, more than 2 [place] [address] CONSULTATION Name: GWENDOLYN PAULINO Room: [address] IN [facility]#: [id number] Admission: 07/31/20 Attend Phys: Brandin Wilson Discharge: Date of : 55 Report #: [id number] several decades, discontinued in 2003. No known history of heavy alcohol use or illegal drug use. ALLERGIES: SHE HAS HAD COUGH WITH DAVID INHIBITORS, ELEVATION IN CREATININE WITH MELOXICAM, ALSO REPORTS ALLERGY TO LATEX AND CERTAIN TYPES OF BAND-AIDS. MEDICATIONS: Current medication list in [facility] reviewed. Home medication list in [facility] reviewed. Also, note that she is on Eliquis at home, which was not on her initial medication list. FAMILY HISTORY: No pertinent family history. PHYSICAL EXAMINATION: GENERAL: She is alert, awake and oriented, does not appear to be in any distress at this time. VITAL SIGNS: She has a pulse of 60 and a blood pressure of 133/64, she is saturating 96% on 3 liters nasal cannula, respiratory rate 16-17, afebrile with a temperature of 36.2. Body mass index 46. HEENT: Head is normocephalic and atraumatic. Pupils are equal and reactive. There is no throat erythema. NECK: Does not show raised JVP, asymmetry, mass or lymph nodes. CHEST: Symmetrical expansion on inspection and palpation. On auscultation, breath sounds are mildly decreased, I do not hear any added sounds. HEART: Regular. There is no murmur. ABDOMEN: Soft and nontender. EXTREMITIES: Lower extremities show trace edema. No calf tenderness. SKIN: Dry and intact. NEUROLOGIC: Moves all extremities bilaterally equally and spontaneously with no focal deficit identified. IMAGING STUDIES: The patient's chest x-ray is reviewed and compared with her previous chest x-rays. There are chronic changes noted. There are some infiltrates noted as well; however, these are no different compared with the chest x-ray performed on 07/15/2020. There is some worsening compared with the x-ray performed on 07/03/2020. LABORATORY DATA: Lab work in [facility] reviewed. ASSESSMENT/PLAN: 1. Chronic obstructive pulmonary disease exacerbation. This is already better with Solu-Medrol. I discontinued her Solu-Medrol. Recommend treating her with a prednisone taper. I ordered nebulized bronchodilators. 2. Sleep-related hypoventilation. The patient likely will maintain O2 saturation while awake; however, I kept her on oxygen while awake as well as she [address] [place] [address] CONSULTATION Name: GWENDOLYN PAULINO Room: [address] IN [facility]#: [id number] Admission: 07/31/20 Attend Phys: Brandin Wilson Discharge: Date of : 55 Report #: [id number] is likely to desaturate if she accidentally doses off. What will be more effective is a BiPAP. Unfortunately, she does not meet criteria for a BiPAP with her insurance; and therefore, we are working with the piano case and bench assembler to see if a BiPAP or, if she is unable to afford that, a CPAP, which will be less effective, can be arranged. I will go ahead and put her on a BiPAP while she is here tonight. 3. Pulmonary infiltrates. These look essentially the same as compared with the x-ray performed on 07/15/2020, somewhat more prominent compared with the x-ray performed on 07/03/2020. There is no definite sign of a new pneumonia. However, due to this finding, I have decided to go ahead and cover her with doxycycline for 5 days. 4. Paroxysmal atrial fibrillation. This was noticed during the last admission about a month ago. To my knowledge, the patient has not previously had atrial fibrillation. It is also my understanding that the patient currently is in sinus rhythm. The patient was on Eliquis per Cardiology Service on admission; therefore, I went ahead and reordered it for now. I would defer to the Cardiology Service regarding whether the patient is continued on Eliquis long-term if she remains in sinus rhythm. 5. Fluid overload and mild renal insufficiency. The patient has had significant issues recently with fluid overload. When we diurese her, usually her creatinine goes; and then creatinine returns to normal when we cut back on diuresis. She is only on a small dose of p.o. Lasix and currently in fact appears to be only mildly fluid overloaded; therefore, I did not make any change at this time. 6. Past medical history of lung cancer. 7. Past medical history of COVID-19. 8. Okay for discharge from a pulmonary point of view tomorrow morning if no new events. MD KEEGAN Dorantes/MARCOS By: [id number] Etienne MD /nt
[~2020-07-31 12:34] MED LIST changes: -TRELEGY ELLIPT1 EACH INH
[2020-07-31 12:38] VITALS: BP 124/74
[2020-07-31] MEDS ORDERED: TRELEGY ELLIPT1 EACH INH (12:47)
[2020-07-31 13:32] LABS: ABSOLUTE BASOPHILS 0.1 thou/uL (0.0-0.2); ABSOLUTE EOSINOPHILS 0.3 thou/uL (0.0-0.7); ABSOLUTE LYMPHOCYTES 3.6 thou/uL (0.8-5.3); ABSOLUTE MONOCYTES 0.6 thou/uL (0.0-1.2); ABSOLUTE NEUTROPHILS 5.8 thou/uL (1.6-8.1); BASOPHILS 1.1 %; HEMATOCRIT 39.3 % (37.0-47.0); HEMOGLOBIN 13.2 gm/dL (12.0-15.0); LYMPHOCYTES 34.3 %; MCH 30.5 pg (26.0-34.0); MCHC 33.5 g/dL (28.0-37.0); MCV 91.1 fL (80.0-100.0); MONOCYTES 5.8 %; MPV 8.9 fl. (7.2-11.1); NUCLEATED RBCS 0 /100WBC; PLATELET COUNT* 231 thou/uL (150-400); POLYS 55.8 %; RBC 4.32 mil/uL (4.20-5.00); RDW-CV 14.1 % (10.5-14.5); WBC 10.4 thou/uL (4.0-11.0)
[2020-07-31 13:43] LABS: CALCIUM 10.2 mg/dL (8.5-10.1); CREATININE 1.5 mg/dL (0.6-1.3); POTASSIUM 3.9 mmol/L (3.5-5.1)
[2020-07-31 13:54] LABS: ALBUMIN 3.6 g/dL (3.4-5.0); TOTAL BILIRUBIN 0.5 mg/dL (<0.1-1.0); TOTAL PROTEIN 7.4 g/dL (6.4-8.2)
--- NOTE | 2020-07-31 16:01 | EKG ---
[place] [address] ELECTROCARDIOGRAM REPORT Name: JEFFERSONGWENDOLYN A Room: [place] [address] ADM IN ..#: [id number] Admission: 07/31/20 Attend Phys: Carlos Yates Discharge: Date of : 55 Date of Service: 07/31/20 1315 Report #: [id number] THIS REPORT FOR: //name// [facility] ED Test Date: 2020-07-31 Test Time: 13:15:01 Pat Name: GWENDOLYN PAULINO Department: Room: 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: AMADO : 1955 Requested By: Maximino Reyes Order Number: [id number] MD: Dameon Orozco Measurements Intervals [place] Rate: 68 P: 37 NC: 152 QRS: 7 QRSD: 92 T: -71 QT: 451 QTc: 480 Interpretive Statements Sinus rhythm Probable left atrial enlargement Repol abnrm suggests ischemia, anterolateral Baseline wander in lead(s) V3,V5,V6 Compared to ECG 07/15/2020 01:51:13 Possible ischemia now present Electronically Signed On 07-31-2020 16:01:32 CDT by Dameon Orozco [email or web address] <ELECTRONICALLY SIGNED> By: Dameon Orozco MD, [facility] 07/31/20 1601 1315 1315 Dameon Orozco MD, [facility] /EPI
[2020-07-31 16:56] VITALS: BP 108/69
--- NOTE | 2020-07-31 17:10 | NUR ---
er admit to rm 205 patient to rm via cart sba to bed oriented to rm and call light denies pain
[2020-07-31] MEDS ORDERED: BAYER CHEWABLE81 MG PO (17:59)
[2020-07-31 20:00] VITALS: BP 110/59
[2020-07-31 23:44] VITALS: BP 107/46
[2020-08-01 03:27] VITALS: BP 103/55
[2020-08-01 04:01] LABS: HEMATOCRIT 39.2 % (37.0-47.0); MCH 30.6 pg (26.0-34.0); MCHC 33.3 g/dL (28.0-37.0); MCV 91.9 fL (80.0-100.0); MPV 9.2 fl. (7.2-11.1); RBC 4.26 mil/uL (4.20-5.00); RDW-CV 14.3 % (10.5-14.5); WBC 8.5 thou/uL (4.0-11.0)
[2020-08-01 04:13] LABS: CALCIUM 9.4 mg/dL (8.5-10.1); CREATININE 1.9 mg/dL (0.6-1.3); POTASSIUM 4.2 mmol/L (3.5-5.1)
--- NOTE | 2020-08-01 05:24 | NUR ---
A&O X 4. ON 3L. MEDS GIVEN ORDERED. SLEEPING PILL GIVEN PER PT REQUEST. PT SLEPT OFF AND ON. SR OR SB ON THE HEART MONITOR. CALL LIGHT WITHIN REACH. WILL CONTINUE TO MONITOR.
[2020-08-01 08:00] VITALS: BP 126/51
--- NOTE | 2020-08-01 08:00 | NUR ---
ACCU CHECK ELEVATED THIS AM - GIVEN SCHEDULED AND PRN INSULIN PER ORDERS. DR COYLE NOTIFIED.
[2020-08-01 12:00] VITALS: BP 106/53
--- NOTE | 2020-08-01 13:54 | NUR ---
Nutrition: Pt admitted with low O2. Seen for high BMI. Pt was down in test at time of attempted visit. Wt: 269#, was 233# last year per [employer]. Labs: BG 315-402, albumin 3.6. Diet order was 2gm Na with a CHO count. Noted physician order of Regular diet now in place for dinner. Pt would benefit from CHO controlled - please reevaluate. Hx, meds noted. On insulin. RECOMMEND CHO CONTROLLED DIET BG IS ELEVATED. Otherwise, no other nutrition interventions at this time. Mild risk.
--- NOTE | 2020-08-01 13:56 | NUR ---
Pt is A&O. Resides at home with . Independent. Pt wears home o2 at 3L continuous through [employer]. Hx of [facility]. No hx of SNF. Per CM note from early June, pulm recommending that Pt f/u outpt to get qualified for cpap/bipap, CM updated nurse. Anticipate dc tomorrow. Pt now M/s status. No needs at dc.
[2020-08-01 16:00] VITALS: BP 133/64
--- NOTE | 2020-08-01 17:19 | NUR ---
TECHNICAL RESEARCH SCIENTIST TRACKING WITH NO CHANGE IN RHYTHM. CONTINUES ON 3L PER NC, SOA NOTED WITH ACTIVITY. GIVEN TYLENOL X 1 DURING SHIFT FOR COMPLAINTS OF BACK LEGS GENERALIZED DISCOMFORT. UP IN SHOWER AT THIS TIME. AT BEDSIDE. ACCU CHECKS REMAIN ELEVATED - DOCTOR AWARE, INSULIN ADJUSTED GIVEN ADDITIONAL DOSAGE ORDERED. CALL LIGHT WITHIN REACH, WILL CONTINUE WITH PLAN OF CARE.
[2020-08-01 20:00] VITALS: BP 123/58
[2020-08-01] MEDS ORDERED: ELIQUIS5 MG PO (21:35)
[2020-08-02 00:11] VITALS: BP 126/48
--- NOTE | 2020-08-02 04:34 | NUR ---
PATIENT SLEPT WELL DURING THIS SHIFT. PT ON O2 @ 3L PER NASAL CANNULA. DR DRAPER CALLED AND SAID PT WAS TO WEAR BIPAP AT NIGHT; PT REFUSED. 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 PT WITH SALINE LOCK; PATENT. PT WITH 2100 BLOOD SUGAR OF 403; DR COYLE CALLED AND ORDER RECEIVED TO INCREASE PT TO ACHS MODERATE SCALE AND TO CONTINUE WITH AC SCHEDULED HUMALOG AND AM LANTUS. P DENIES PAIN/NAUSEA. PT HOPING TO GO HOME TODAY. WILL CONTINUE TO MONITOR.
[2020-08-02 04:41] LABS: ABSOLUTE LYMPHOCYTES 2.1 thou/uL (0.8-5.3); ABSOLUTE MONOCYTES 1.5 thou/uL (0.0-1.2); BASOPHILS 0.1 %; HEMATOCRIT 37.2 % (37.0-47.0); HEMOGLOBIN 12.2 gm/dL (12.0-15.0); LYMPHOCYTES 10.7 %; MCH 30.1 pg (26.0-34.0); MCHC 32.9 g/dL (28.0-37.0); MCV 91.5 fL (80.0-100.0); MONOCYTES 7.9 %; MPV 9.3 fl. (7.2-11.1); NUCLEATED RBCS 0 /100WBC; PLATELET COUNT* 232 thou/uL (150-400); POLYS 81.3 %; RBC 4.06 mil/uL (4.20-5.00); RDW-CV 14.5 % (10.5-14.5); WBC 19.7 thou/uL (4.0-11.0)
[2020-08-02 04:49] LABS: ALBUMIN 3.4 g/dL (3.4-5.0); CALCIUM 9.4 mg/dL (8.5-10.1); CREATININE 1.7 mg/dL (0.6-1.3); POTASSIUM 3.8 mmol/L (3.5-5.1); TOTAL BILIRUBIN 0.4 mg/dL (<0.1-1.0)
[2020-08-02 08:11] VITALS: BP 135/61
[2020-08-02] MEDS ORDERED: DOXYCYCLINE 10100 MG PO (10:06)
[2020-08-02] MEDS ORDERED: PREDNISONE 10 M10 MG PO (10:07)
[2020-08-02 12:00] VITALS: BP 104/88
[2020-08-02 13:08] VITALS: BP 104/88
--- NOTE | 2020-08-02 13:12 | NUR ---
PT DISCHARGING WITH NO QUESTIONS OR CONCERNS WHEN EDUCATION GIVEN CALL LIGHT IN REACH
== END 2020-08-02 13:25 | disposition home or self-care (01) | DRG 177 ==
LOC: M.ERS 12:34 → M.TBA-ER 14:30 → M.2W 14:30
PROVIDERS: Emergency Medicine Emergency Medical Services; Internal Medicine; ADMIT Internal Medicine; ATTEND Internal Medicine
DX: J15.6 Pneumonia due to other Gram-negative bacteria (principal); J96.21 Acute and chronic respiratory failure with hypoxia; J44.1 Chronic obstructive pulmonary disease with (acute) exacerbation; J44.0 Chronic obstructive pulmonary disease with (acute) lower respiratory infection; N17.9 Acute kidney failure, unspecified; I24.9 Acute ischemic heart disease, unspecified; Z68.42 Body mass index [BMI] 45.0-49.9, adult; N18.30 Chronic kidney disease, stage 3 unspecified; I12.9 Hypertensive chronic kidney disease with stage 1 through stage 4 chronic kidney disease, or unspecified chronic kidney disease; E11.22 Type 2 diabetes mellitus with diabetic chronic kidney disease; E78.5 Hyperlipidemia, unspecified; I25.10 Atherosclerotic heart disease of native coronary artery without angina pectoris; M19.90 Unspecified osteoarthritis, unspecified site; G40.909 Epilepsy, unspecified, not intractable, without status epilepticus; K76.0 Fatty (change of) liver, not elsewhere classified; E78.00 Pure hypercholesterolemia, unspecified; K21.9 Gastro-esophageal reflux disease without esophagitis; F32.9 Major depressive disorder, single episode, unspecified; G47.36 Sleep related hypoventilation in conditions classified elsewhere; E66.01 Morbid (severe) obesity due to excess calories; Z20.822 Contact with and (suspected) exposure to COVID-19; Z85.118 Personal history of other malignant neoplasm of bronchus and lung; Z92.21 Personal history of antineoplastic chemotherapy; Z92.3 Personal history of irradiation; Z95.5 Presence of coronary angioplasty implant and graft; Z91.040 Latex allergy status; Z90.711 Acquired absence of uterus with remaining cervical stump; Z88.8 Allergy status to other drugs, medicaments and biological substances; Z91.09 Other allergy status, other than to drugs and biological substances; Z79.4 Long term (current) use of insulin; Z79.82 Long term (current) use of aspirin; Z79.899 Other long term (current) drug therapy; Z87.891 Personal history of nicotine dependence

== ENCOUNTER → 2020-09-08 | Outpatient (CLI) | payer MEDICARE ==
[~2020-09-08] MED LIST changes: +ELIQUIS5 MG PO; +TRELEGY ELLIPT1 EACH INH
[2020-09-08 15:05] LABS: CALCIUM 8.8 mg/dL (8.5-10.1); CREATININE 1.4 mg/dL (0.6-1.3); POTASSIUM 3.9 mmol/L (3.5-5.1)
== END ==
LOC: M.LAB 14:41
PROVIDERS: ATTEND Nurse Practitioner
DX: N18.9 Chronic kidney disease, unspecified (principal)

== ENCOUNTER → 2020-09-11 | Outpatient (CLI) | payer MEDICARE, OTHER ==
--- NOTE | 2020-10-14 07:04 | SLEEP ---
[address] [address] SLEEP STUDY REPORT Name: JEFFERSONGWENDOLYN Erasmo Room: [facility]#: [id number] Admission: 09/11/20 Attend Phys: Mamadou Etienne MD Discharge: Date of : 55 Report #: [id number] THIS REPORT FOR: cc: Beata Rivera Linda J. DO Pervez, Adeel MD ~ DATE OF STUDY: 09/11/2020 SLEEP STUDY INDICATION FOR SLEEP STUDY: Hypersomnia with sleep-related hypoventilation. INTERPRETATION: Total duration of the study is 406 minutes out of which she was asleep for 403 minutes with an overall sleep efficiency of 91%. Sleep onset initially occurred 3 minutes after lying down in bed and REM onset was 154 minutes after sleep onset. N1 sleep duration is 15%, N2 duration is 52%, N3 duration is 23%. REM duration is 10%. This is a split night sleep study. During the initial part of the sleep study, the patient was not on positive airway pressure therapy for 173 minutes out of which she was asleep for 152 minutes. This included 2 minutes in REM sleep. We did record multiple sleep-related respiratory events during this time. These included 191 hypopneas in addition to 18 obstructive apneas and 2 central apneas. Overall, apnea-hypopnea index is markedly elevated at 83.3. The patient also had multiple desaturations. O2 saturation was less than 88% for 86.7 minutes. Mean heart rate was 71. Periodic limb movement index was elevated to 73. Most limb movements, however, were not associated with arousals. Overall, arousal index was elevated to 27. During this time period, the patient was observed both in the supine position as well as on the right side. Events are more common when the patient is lying supine. The patient was subsequently placed on a BiPAP as she had previously failed CPAP therapy. She was observed on a BiPAP for 233 minutes. This included 216 minutes of sleep time, which in turn included 33 minutes of REM sleep and heart rate remained around 71, periodic limb movement index remained elevated to 59. Most limb movements were not associated with arousals. Again, overall arousal index improved to 12.2. Review of the BiPAP titration indicates the patient was titrated beginning with a BiPAP of 8/4, gradually increasing it to 19/10. The patient had a favorable response to BiPAP therapy with the administration of a BiPAP of 17/10. Only occasional hypopneas recorded. The patient, however, continued to desaturate and some desaturations up to 80% were still noted. [id number] SLEEP STUDY REPORT Name: GWENDOLYN PAULINO Room: [facility] Jose#: [id number] Admission: 09/11/20 Attend Phys: Mamadou Etienne MD Discharge: Date of : 55 Report #: [id number] being observed both in the supine position as well as in the right side on BiPAP therapy and REM supine sleep was observed. IMPRESSION: 1. Severe obstructive sleep apnea with an apnea-hypopnea index of 83 with nocturnal hypoxemia as described above. Events are more common when the patient is lying supine. 2. The patient has previously used CPAP and has failed CPAP therapy. 3. There is a significant improvement in sleep disordered respirations noted with the administration of a BiPAP of 17/10. The patient, however, still remains hypoxemic and O2 saturations up to 80% ____ recorded. RECOMMENDATIONS: 1. Recommend proceeding to setting up a BiPAP of 18/10 with heated humidity and mask per patient preference while asleep as the patient is still hypoxemic despite using BiPAP. Recommend administration of oxygen 3 liters in line. We will subsequently plan to obtain a nocturnal pulse oximetry with BiPAP and oxygen in place. We will also review memory card data after she has used a BiPAP for a while and then adjust accordingly. 2. Weight loss is strongly recommended. 3. Recommend avoiding driving and other activities requiring vigilance if drowsy. This entire sleep study was reviewed by board certified sleep physician. <ELECTRONICALLY SIGNED> By: Mamadou Etienne MD 10/14/20 [id number] Etienne MD /nt
== END ==
LOC: M.SLEEPLAB 09-05 20:00
PROVIDERS: ATTEND Internal Medicine Critical Care Medicine
DX: G47.33 Obstructive sleep apnea (adult) (pediatric) (principal); G47.36 Sleep related hypoventilation in conditions classified elsewhere; G47.34 Idiopathic sleep related nonobstructive alveolar hypoventilation; G47.10 Hypersomnia, unspecified; J44.9 Chronic obstructive pulmonary disease, unspecified; Z88.8 Allergy status to other drugs, medicaments and biological substances

== ENCOUNTER → 2020-11-12 | Outpatient (CLI) | payer MEDICARE | LOC: M.RAD 11-05 09:00 | PROVIDERS: ATTEND Nurse Practitioner Family | DX: Z78.0 Asymptomatic menopausal state (principal) ==